=== PATIENT | male | born 1950 | race Caucasian/White ===

== ENCOUNTER 2018-05-25 07:17 | Day surgery (SDC) | payer OTHER, SELFPAY ==
[2018-05-25] VITALS (10 sets, daily range): BP systolic 106–116; BP diastolic 49–79; PULSE 54–67; RESP 16–18; TEMP 35.7–36.5; O2SAT 93–96; BMI 28.4
--- NOTE | 2018-05-25 | IMM_PTH ---
PATIENT: MARYA GANDHI LOC: [facility] U#:[id number] AGE/SX: 68/M ROOM: RE05/25/[address]: Dr. Severiano Zamudio MD : 1950 BED: DIS: 05/25/2018 SPEC #: [id number] RECD: 05/26/18 11:07 STATUS: GORDO SULTANA #: [id number] SURY: 05/25/18 00:[address]: Severiano Zamudio DEPT: IMMUNOHISTOCHEMISTRY RECD BY: Darell Meehan ENTERED: 05/26/18 11:08 SP TYPE: IMMUNO OTHR DR: Dr. Dhruv Deleon MD Tissues: A - Gastric mucous membrane B - Stomach, NOS Procedures: H Pylori (initial) PHYSICIAN & INSTITUTION [place] [id number] SPECIMEN INFORMATION: Tissue Source: A. Antrum biopsy, B. Body of stomach biopsy Clinical Info: Epigastric abdominal pain Specimen Number: [id number] A, B CPT code: 64405a9 METHODOLOGY: Deparaffinized sections of prefer/formalin-fixed tissue or PAP/DQ stained slides are incubated with monoclonal/polyclonal antibodies/oligonucleotide probes. Localization is made via biotin free immunoperoxidase method. Appropriate controls are performed and reacted as expected. Results on target cell population are indicated in the following table: RESULTS: ANTIBODY / CLONE RESULT Block A H Pylori (polyclonal) negative Block B H Pylori (polyclonal) positive These tests were developed and their performance characteristics determined by [facility]. They may not have been cleared or approved by the U.S. Food and Drug Administration. The FDA has determined that such clearance or approval is not necessary. INTERPRETATION: A. Antrum biopsy: Negative for Helicobacter pylori organisms. B. Body of stomach biopsy: Positive for a few Helicobacter pylori organisms. SJ:maite 05/26/18
--- NOTE | 2018-05-25 | EGD_PTH ---
PATIENT: MARYA GANDHI LOC: [facility] U#:[id number] AGE/SX: 68/M ROOM: RE05/25/[address]: Dr. Severiano Zamudio MD : 1950 BED: DIS: 05/25/2018 SPEC #: [id number] RECD: 05/25/18 09:36 STATUS: GORDO SULTANA #: [id number] SURY: 05/25/18 00:[address]: Severiano Zamudio DEPT: SURGICAL PATHOLOGY RECD BY: Ruperto Bae ENTERED: 05/25/18 11:05 SP TYPE: EGD BIOPSY OT DR: Dr. Dhruv Deleon MD Tissues: A - Gastric mucous membrane B - Stomach, NOS C - Esophageal mucous membrane D - Esophageal mucous membrane Procedures: Surgery Specimen Level IV HEADER OPERATION: EGD with biopsies PRE-OP DIAGNOSIS: Epigastric abdominal pain TISSUE SUBMITTED: A. Antrum biopsy for H. Pylori, B. Body of stomach biopsy, C. Distal esophagus biopsy, D. Mid esophagus biopsy MICROSCOPIC DIAGNOSIS A. Antral biopsy: Lhux-rm-jodokfpy gastritis. B. Body of stomach, biopsy: Moderate chronic active gastritis. C. Distal esophagus, biopsy: Fragmental gastroesophageal mucosa with chronic inflammation. Intestinal metaplasia (goblet cell metaplasia) not identified. See comment. D. Mid esophagus, biopsy: Fragmental squamous epithelium with mild chronic inflammation. SJ:carlos 05/26/18 COMMENT A & B. The results of immunohistochemistry for Helicobacter pylori will be reported separately ([id number]). C. Specimen predominantly consists of squamous epithelium. Alcian blue/PAS stain with matched control is used in the evaluation of the specimen. MICROSCOPIC DESCRIPTION Slides are reviewed. A. The specimen shows fragments of gastric mucosa with chronic inflammatory cell infiltrates in the lamina propria consisting of lymphocytes and plasma cells, consistent with cmqw-fa-lmtsqnwt chronic gastritis. GROSS DESCRIPTION A. Received in fixative is one container labeled with the patient's name and designated antrum biopsy for H. pylori. The specimen consists of one fragment of tissue measuring 0.6 x 0.3 x 0.2. The specimen is totally submitted in one cassette. B. Received in fixative is one container labeled with the patient's name and designated body of stomach biopsy. The specimen consists of one fragment of tissue measuring 0.4 x 0.3 x 0.2. The specimen is totally submitted in one cassette. C. Received in fixative is one container labeled with the patient's name and designated distal esophagus biopsy. The specimen consists of multiple fragments of tissue measuring in aggregate 1.5 x 0.6 x 0.2. The specimen is totally submitted in one cassette. D. Received in fixative is one container labeled with the patient's name and designated mid esophagus biopsy. The specimen consists of one fragment of tissue measuring 0.5 x 0.4 x 0.2. The specimen is totally submitted in one cassette. RY:carlos 05/24/18 TC: 2 CPT: 18304 x4, 05822
--- NOTE | 2018-05-25 09:17 | PCM.OPRPT ---
Problem List (1) Epigastric abdominal pain Status: Acute Report of Operation Date of Procedure: 05/25/18 Pre-Operative Diagnosis: Epigastric abdominal pain Post-Operative Diagnosis: Small hiatal hernia, mild antral gastritis Surgery/Procedure Performed:: Esophagogastroduodenoscopy with cold forcep biopsies Description of Surgical Findings:: Timeout and informed consent was obtained. 68-year-old gentleman was taken to the endoscopy suite. His oropharynx anesthetized with Topex. He was placed in a left lateral decubitus position. Throughout the procedure he received a total of 100 mg Demerol and 4.5 mg of Versed is intravenous sedation. Videogastroscope was inserted in the esophageal inlet. The proximal mid distal esophagus did not appear to be grossly remarkable. The EG junction was at 40 cm. Small hiatal hernia noted. There is evidence of very mild reflux. No erosions no acute inflammation. The scope was advanced into the stomach where a very minimal amount of antral erythema was identified. The scope was advanced through the pylorus. The first and second portions of the duodenum were inspected. This was not remarkable. The scope was withdrawn back in the stomach retroflexed the EG junction cardia inspected a hiatal hernia noted. The cardia was otherwise unremarkable. The scope was placed back in in antegrade viewing position and the main body of the stomach on the greater curvature stride at just a mild amount of erythema to it. Biopsy was obtained of the antrum and of the mid body of the stomach. Excess fluid and air was aspirated free. The scope was withdrawn to the distal esophagus. Distal esophageal biopsy was obtained at the e.g. junction. And then an additional mid esophageal biopsy was obtained. He tolerated all of that well. Blood loss was minimal. The scope procedure was withdrawn and completed. Impression Small hiatal hernia with findings suggested some mild reflux esophagitis. Mild antral and body of the stomach erythema. Patient is already on omeprazole 20 mg daily. I will increase that to 20 mg twice daily while awaiting pathology results. The current findings do not correlate well with the patient's complaints of burning epigastric pain. I will asked him to continue to follow up with his primary care physician regarding that evaluation. Medications were given at 0906. Procedure started 0907. Procedure was completed at 0918. Severiano Zamudio M.D., F.A.C.S. Type of Anesthesia:: IV Sedation
== END 2018-05-25 10:50 | disposition home or self-care (01) ==
LOC: EN 07:18 → AC 07:20
PROVIDERS: Family Provider Family Medicine; PCP Family Medicine; Visit Provider Surgery
PROC: (CPT 43239; principal; 2018-05-25 08:40)
DX: K21.0 Gastro-esophageal reflux disease with esophagitis (principal); K44.9 Diaphragmatic hernia without obstruction or gangrene; K29.50 Unspecified chronic gastritis without bleeding; I10 Essential (primary) hypertension; E78.00 Pure hypercholesterolemia, unspecified; I25.2 Old myocardial infarction; Z79.82 Long term (current) use of aspirin; Z79.899 Other long term (current) drug therapy; Z87.891 Personal history of nicotine dependence
CPT/HCPCS: 43239; 88305; 88342; 99152; J7120

== ENCOUNTER → 2018-08-31 12:02 | Outpatient (CLI) | payer OTHER, SELFPAY ==
[2018-08-31 12:34] LABS: Erythrocyte Sedimentation Rate 21 mm/hr (0-20)
[2018-08-31 13:14] LABS: Amylase 82 U/L (25-115); Thyroid Stim Hormone (TSH) 2.51 uIU/mL (0.358-3.74)
[2018-09-03 03:07] LABS: Endomysial Antibody IgA Negative (Negative); Immunoglobulin A 177 mg/dL (61-437)
[2018-09-03 08:50] LABS: H. PYLORI STOOL AG Negative (Negative); t-Transglutaminase IgA <2 U/mL (0-3)
== END ==
PROVIDERS: Family Provider Family Medicine; PCP Family Medicine
DX: B96.81 Helicobacter pylori [H. pylori] as the cause of diseases classified elsewhere (principal); R10.84 Generalized abdominal pain
CPT/HCPCS: 82150; 82784; 83516; 84443; 85652; 86255

== ENCOUNTER → 2020-06-12 | Outpatient (CLI) | payer OTHER, SELFPAY ==
[2020-06-12 12:28] VITALS: BMI 28.5
--- NOTE | 2020-06-12 12:59 | CT_ITS ---
STUDY: LOW DOSE CT LUNG CANCER SCREENING REASON FOR EXAM: Male, 70 years old. LUNG CANCER SCREENING. 35 PACK YEAR SMOKING HISTORY RADIATION DOSAGE (If Supplied By Facility): CTDIvol = ( 3.02 ) mGy, DLP = ( 103.82 ) mGycm TECHNIQUE: No contrast was administered. Low dose technique was utilized (average mAS-38 and kVp 120). 1.25 mm axial source images with a slice interval of 1.25-mm were reconstructed in lung windows. 2.5 mm axial source images with a slice interval of 2.5-mm were reconstructed in lung windows. 5.0 mm axial source images with a slice interval of 5.0-mm were reconstructed in soft tissue windows. Nodule measured using lung windows on PACS and/or independent workstation with automated measurement of minimum and maximum diameter. Nodule measurement reported as average diameter rounded to the nearest whole number. Growth is defined as an increase ins size of greater than 1.5 mm. COMPARISON: None. NODULES: No suspicious nodules are seen. Emphysema: There is evidence of a interstitial scarring at the lung bases with areas of bronchiectasis and subpleural blebs. Findings in keeping with scarring at the lung apices as well. Aorta: Calcification of the aortic arch. Coronary arteries: Coronary artery calcification. Mediastinal nodes: Calcified nodes in the aortopulmonary window. Other chest and abdominal findings: Degenerative changes of the thoracic spine. CT/Low Dose CT Lung Screening IMPRESSION: Lung-RADS category 2 - Continue annual screening with LDCT in 12 months. IMPORTANT NOTES FOR USE: ACR Lung-RADS Version 1.0 Assessment Categories Release Date: March 27, 2014 Category: Coded 0-4 bases on nodule(s) with highest degree of suspicion. Negative screen is defined as categories 1 and 2; a positive screen is defined as categories 3 and 4. Category 3 and 4A nodules that are unchanged on interval CT should be coded as category 2, and individuals returned to screening in 12 months. Category 4X: Category 3 or 4 nodules with additional imaging findings that increase the suspicion of lung cancer, such as spiculation, GGN that doubles in size in 1 year, enlarged lymph notes, etc. Category Modifiers: S (significant finding unrelated to lung cancer) and C (prior history of treated lung cancer) may be added to the 0-4 Lung-RADS Electronically Signed: Arnaldo Polanco, at 13:30 EDT , Service support ,
== END | disposition home or self-care (01) ==
LOC: CT 12:59
PROVIDERS: PCP Family Medicine; Referring Provider Nurse Practitioner Family; Visit Provider Nurse Practitioner Family
DX: Z87.891 Personal history of nicotine dependence (principal); Z12.2 Encounter for screening for malignant neoplasm of respiratory organs
CPT/HCPCS: G0297

== ENCOUNTER → 2020-07-13 | Outpatient (CLI) | payer OTHER, SELFPAY ==
[2020-06-20 06:22] VITALS: BMI 28.8
--- NOTE | 2020-07-13 13:56 | PFT ---
INTRODUCTION: The patient is a 70-year-old male that presents for pulmonary function studies secondary to a diagnosis of shortness of breath. Respiratory therapy reports good patient effort. Bronchodilators were used during testing. INTERPRETATION: Forced expiration spirometry demonstrates no evidence of a large airways obstructive ventilatory defect. There was no significant response to aerosolized bronchodilators. Spirograms are of good quality and plateau gradually indicating slow emptying of the lungs. Body plethysmography was performed and reveals a decreased TLC to 4.37 L, 72% of predicted, indicative of a mild restrictive ventilatory impairment. The remainder of the lung volumes are symmetrically reduced. Diffusing capacity by single breath CO is mildly reduced at 71% of predicted. IMPRESSION: Mild restrictive ventilatory impairment with symmetric reduction in diffusing capacity.
== END | disposition home or self-care (01) ==
PROVIDERS: PCP Family Medicine; Referring Provider Internal Medicine Critical Care Medicine; Visit Provider Internal Medicine Critical Care Medicine
DX: R06.02 Shortness of breath (principal)
CPT/HCPCS: 94060; 94726; 94729

== ENCOUNTER → 2020-07-17 | Outpatient (CLI) | payer OTHER, SELFPAY ==
[2020-06-20 06:22] VITALS: BMI 28.8
[2020-07-17 13:08] VITALS: PULSE 76; PULSE 79; PULSE 93; PULSE 94; PULSE 95; PULSE 96; PULSE 97; O2SAT 91; O2SAT 92; O2SAT 94; O2SAT 95
--- NOTE | 2020-07-18 06:38 | PCM.PSN.6M ---
PSN 6 Minute Walk Test - 6 Minute Walk Test 6 Minute Walk Test: 6 Minute Walk Test PSN:6-Minute Walk Test Start: 07/17/20 13:07 Freq: Status: Active Protocol: RESP.6MINW Document 07/17/20 13:08 ZEB (Rec: 07/17/20 13:14 ZEB [id number]) 6 Minute Walk Test Date Performed 07/17/20 Time Performed 13:00 Height 5 ft 8 in Weight: 86.183 kg Weight in Pounds 190.[address]: Young Lassiter Assistive device used: None Pre-test Oxygen Delivery Method Room Air Pulse Ox (%) 94 Pulse Rate (60-100 beats/min) 76 Dyspnea Saud Scale (0-10) 0.5 Exertion Saud Scale (6-20) 6 1st minute Oxygen Delivery Method Room Air Pulse Ox (%) 92 Pulse Rate (60-100 beats/min) 93 2nd minute Oxygen Delivery Method Room Air Pulse Ox (%) 91 Pulse Rate (60-100 beats/min) 94 3rd minute Oxygen Delivery Method Room Air Pulse Ox (%) 91 Pulse Rate (60-100 beats/min) 94 4th minute Oxygen Delivery Method Room Air Pulse Ox (%) 91 Pulse Rate (60-100 beats/min) 95 5th minute Oxygen Delivery Method Room Air Pulse Ox (%) 91 Pulse Rate (60-100 beats/min) 96 6th minute Oxygen Delivery Method Room Air Pulse Ox (%) 91 Pulse Rate (60-100 beats/min) 97 Dyspnea Saud Scale (0-10) 2 Exertion Saud Scale (6-20) 12 Post-test Oxygen Delivery Method Room Air Pulse Ox (%) 95 Pulse Rate (60-100 beats/min) 79 Full Laps Walked 20 Partial Lap, Number of Tiles Walked 18 Total Distance Walked (ft) 1198 - Interpretation Interpretation: Patient was able to ambulate 1198 feet over the course of 6 minutes on room air with no assistive devices or breaks. The patient did have significant desaturation from baseline of 94% to as low as 91%. No significant tachycardia was noted. These findings are consistent with a respiratory limitation exercise tolerance. - Recommendations Recommendations: No supplemental oxygen is indicated at this time, but patient will need to be followed closely given level of desaturation.
== END | disposition home or self-care (01) ==
LOC: PSN 12:43
PROVIDERS: PCP Family Medicine; Referring Provider Internal Medicine Critical Care Medicine; Visit Provider Internal Medicine Critical Care Medicine
DX: R06.02 Shortness of breath (principal)
CPT/HCPCS: 94618

== ENCOUNTER → 2021-03-12 08:07 | Outpatient (CLI) | payer OTHER, SELFPAY ==
[2020-08-01 06:31] VITALS: BMI 29.3
--- NOTE | 2021-03-12 14:09 | PFTCOMP_ITS ---
COMPLETE PULMONARY FUNCTION TEST INTERPRETATION Brief HPI: Patient is a 70 year old male, currently under the care of Dr. Lassiter, who presents to [facility] for complete pulmonary function tests secondary to diagnosis of dyspnea. Respiratory therapist reports good effort and reproducible results. Interpretation: Forced expiration spirometry shows no large airways obstructive ventilatory defect with an FEV1 of 86% predicted. There is no significant bronchodilator response by strict ATS criteria. Spirograms are of good quality and plateau normally. The respiratory flow volume loop shows a normal pattern. Lung volumes by body plethysmography show a slightly reduced total lung capacity at 4.95 L, 82% predicted. All other lung volumes are within normal limits. Diffusion capacity by carbon monoxide is normal at 75% predicted. The airway resistance is normal. Compared to previous pulmonary function tests from 07/13/2020, there has been a slight improvement in total lung capacity by 13%. Impression: Mild restrictive ventilatory defect with relatively preserved diffusion capacity and some improvement compared to previous.
== END ==
PROVIDERS: PCP Family Medicine; Referring Provider Internal Medicine Critical Care Medicine; Visit Provider Internal Medicine Critical Care Medicine
DX: J98.4 Other disorders of lung (principal)
CPT/HCPCS: 94060; 94726; 94729

== ENCOUNTER → 2021-03-15 10:19 | Outpatient (CLI) | payer OTHER, SELFPAY ==
[2021-03-15 09:31] VITALS: BMI 29.7
[2021-03-15 11:03] LABS: Rheumatoid Factor < 10.0 IU/mL (<15)
[2021-03-18 20:07] LABS: ANTINUCLEAR ANTIBODIES DIRECT Positive (Negative); Anti-Centromere B Ab <0.2 AI (0.0-0.9); Anti-Chromatin 0.2 AI (0.0-0.9); Anti-Jo <0.2 AI (0.0-0.9); Anti-Scleroderma-70 AB <0.2 AI (0.0-0.9); Cytoplasmic Ab (C-ANCA) <1:20 titer (Neg:<1:20); RNP Ab 0.5 AI (0.0-0.9); SJOGREN'S Anti-SS-A test < 0.2 AI (0.0-0.9); SJOGREN'S Anti-SS-B test < 0.2 AI (0.0-0.9); Smith Ab <0.2 AI (0.0-0.9)
[2021-03-18 21:53] LABS: Anti-dsDNA Ab 195 IU/mL (0-9); CCP IgG Antibodies 5 units (0-19); Perinuclear Ab (P-ANCA) <1:20 titer (Neg:<1:20)
== END ==
PROVIDERS: PCP Family Medicine; Referring Provider Internal Medicine Critical Care Medicine; Visit Provider Internal Medicine Critical Care Medicine
DX: J98.4 Other disorders of lung (principal)
CPT/HCPCS: 36415; 86038; 86200; 86225; 86235; 86256; 86431

== ENCOUNTER → 2021-03-19 11:09 | Outpatient (CLI) | payer OTHER, SELFPAY ==
[2021-03-15 09:31] VITALS: BMI 29.7
[2021-03-19 11:40] VITALS: PULSE 80; PULSE 81; PULSE 85; PULSE 87; PULSE 90; PULSE 91; PULSE 92; O2SAT 89; O2SAT 90; O2SAT 91; O2SAT 92; O2SAT 94; O2SAT 95
--- NOTE | 2021-03-20 13:39 | PCM.PSN.6M ---
PSN 6 Minute Walk Test - 6 Minute Walk Test 6 Minute Walk Test: 6 Minute Walk Test PSN:6-Minute Walk Test Start: 03/19/21 11:40 Freq: Status: Active Protocol: RESP.6MINW Document 03/19/21 11:40 [facility] (Rec: 03/19/21 11:52 [facility] [id number]) 6 Minute Walk Test Date Performed 03/19/21 Time Performed 11:15 Height 5 ft 8 in Weight: 190 lb Weight in Pounds 190.[address]: Young Lassiter Assistive device used: None Pre-test Oxygen Delivery Method Room Air Pulse Ox (%) 95 Pulse Rate (60-100 beats/min) 81 Dyspnea Saud Scale (0-10) 0 1st minute Oxygen Delivery Method Room Air Pulse Ox (%) 92 Pulse Rate (60-100 beats/min) 85 Dyspnea Saud Scale (0-10) 0 Number of Rests Taken 0 2nd minute Oxygen Delivery Method Room Air Pulse Ox (%) 90 Pulse Rate (60-100 beats/min) 87 Dyspnea Saud Scale (0-10) 0 Number of Rests Taken 0 3rd minute Oxygen Delivery Method Room Air Pulse Ox (%) 91 Pulse Rate (60-100 beats/min) 90 Dyspnea Saud Scale (0-10) 1 Number of Rests Taken 0 4th minute Oxygen Delivery Method Room Air Pulse Ox (%) 90 Pulse Rate (60-100 beats/min) 91 Dyspnea Asud Scale (0-10) 1 Number of Rests Taken 0 5th minute Oxygen Delivery Method Room Air Pulse Ox (%) 90 Pulse Rate (60-100 beats/min) 91 Dyspnea Saud Scale (0-10) 1 Number of Rests Taken 0 6th minute Oxygen Delivery Method Room Air Pulse Ox (%) 89 Pulse Rate (60-100 beats/min) 92 Dyspnea Saud Scale (0-10) 1 Number of Rests Taken 0 Post-test Oxygen Delivery Method Room Air Pulse Ox (%) 94 Pulse Rate (60-100 beats/min) 80 Dyspnea Saud Scale (0-10) 0 Full Laps Walked 21 Partial Lap, Number of Tiles Walked 47 Total Distance Walked (ft) 1286 - Interpretation Interpretation: The patient ambulated 1286 feet over the course of 6 minutes beginning on room air without assistive devices or breaks. Pretesting oxygen saturation was noted to be 95% on room air. With ambulation, the guerrero oxygen saturation was 89% at minute 6 of testing. This represents a significant exertional oxygen desaturation. - Recommendations Recommendations: There is no indication for the use of supplemental oxygen at this time. However, close interval follow-up is recommended, given the degree of oxygen desaturation noted during the study.
== END ==
PROVIDERS: PCP Family Medicine; Referring Provider Internal Medicine Critical Care Medicine; Visit Provider Internal Medicine Critical Care Medicine
DX: J98.4 Other disorders of lung (principal); R06.02 Shortness of breath
CPT/HCPCS: 94618

== ENCOUNTER → 2021-08-26 08:47 | Outpatient (CLI) | payer OTHER, SELFPAY ==
[2021-08-26 09:59] LABS: EXAGEN MAILED SPECIMEN
== END ==
PROVIDERS: PCP Family Medicine; Referring Provider Internal Medicine Rheumatology; Visit Provider Internal Medicine Rheumatology
DX: R76.8 Other specified abnormal immunological findings in serum (principal)

== ENCOUNTER → 2021-09-06 11:01 | Outpatient (CLI) | payer OTHER, SELFPAY ==
[2021-09-06 13:11] LABS: Absolute Lymphocyte Count 1.93 X10^3/uL (0.83-4.51); Absolute Neutrophil Count 4.2 X10^3/uL (2.0-7.7); Basophil# 0.04 X10^3/uL; Basophil% 0.6 % (0-1); Eosinophil# 0.28 X10^3/uL; Eosinophils% 3.9 % (0-5); Erythrocyte Sedimentation Rate 13 mm/hr (0-20); Hematocrit 46.3 % (40-54); Hemoglobin 15.2 g/dL (13.0-16.5); Lymphocyte # 1.93 X10^3/ul (0.83-4.51); Mean Corp Hgb Conc 32.8 g/dL (32-36); Mean Corpuscular Hgb 29.8 pg (27.0-32.0); Mean Corpuscular Volume 90.8 fL (80-94); Mean Platelet Vol. 11.5 fl (6.2-12.0); Monocyte# 0.64 X10^3/uL; Monocyte% 8.9 % (0-10); NRBC Flagged by Analyzer 0 % (0-5); Neutrophil # 4.23 X10^3/uL (2.7-7.7); Platelet Count 179 K/mm3 (150-450); RBC Distribution Width SD 43.3 fl (35.1-43.9); White Blood Count 7.2 K/mm3 (4.4-11.0)
[2021-09-06 13:30] LABS: Color, Urine Yellow (Yellow); Glucose, Dipstick Normal (Normal); Ketone-Dipstick Negative (Negative); Leukocyte Esterase-Dipstick Negative /ul (Negative); Nitrite-Dipstick Negative (Negative); Occult Blood-Urine Negative /ul (Negative); Protein-Dipstick Negative (Negative); Urine Bilirubin Dipstick Negative (Negative); Urine Clarity Clear (Clear); Urine Urobilinogen Normal (Normal)
[2021-09-06 13:45] LABS: Protein, Urine (Random) 21.1 mg/dL (<11.9); Protein:Creat Ratio 161 mg/g CRE (0-200)
[2021-09-06 13:59] LABS: Albumin, Serum 3.4 g/dL (3.2-5.0); BUN 14 mg/dL (7-18); BUN/Creat Ratio 11.4 RATIO (10-20); Creatinine, Serum 1.23 mg/dL (0.70-1.30); EST Glomerular Filtration Rate 62 mL/min (>60); Est Glom Filt Rate - Afr Amer 75 mL/min (>60); Glucose 96 mg/dL (74-106); Protein, Total 7.5 g/dL (6.4-8.2)
[2021-09-06 14:00] LABS: ALB/GLOB Ratio 0.8 RATIO (0.9-2.4); AST(SGOT) 23 U/L (15-37); Alanine Aminotransfer ALT/SGPT 27 U/L (16-61); Alkaline Phosphatase 69 U/L (45-117); Anion Gap 6 (5-15); CRP < 2.90 mg/L (0.0-3.0); Calcium,Total 8.7 mg/dL (8.5-10.1); Chloride 105 mmol/L (98-107); Globulin 4.1 g/dL (2.2-4.2); Hepatitis B Surface Antibody Reactive; Hepatitis B Surface Antigen Non-Reactive (Nonreactive); Potassium 4.3 mmol/L (3.5-5.1); Sodium Level 138 mmol/L (136-145)
[2021-09-09 09:15] LABS: Hepatitis C Antibody REACTIVE (Nonreactive)
== END ==
PROVIDERS: PCP Family Medicine; Referring Provider Internal Medicine Rheumatology; Visit Provider Internal Medicine Rheumatology
DX: M06.4 Inflammatory polyarthropathy (principal); R76.8 Other specified abnormal immunological findings in serum; M47.897 Other spondylosis, lumbosacral region; Q66.70 Congenital pes cavus, unspecified foot; R06.00 Dyspnea, unspecified; I25.10 Atherosclerotic heart disease of native coronary artery without angina pectoris; K21.9 Gastro-esophageal reflux disease without esophagitis; J30.9 Allergic rhinitis, unspecified; E78.5 Hyperlipidemia, unspecified; N40.0 Benign prostatic hyperplasia without lower urinary tract symptoms
CPT/HCPCS: 36415; 80053; 81002; 82570; 84156; 85025; 85652; 86140; 86706; 86803; 87340

== ENCOUNTER → 2021-09-12 10:13 | Outpatient (CLI) | payer OTHER, SELFPAY ==
[2021-09-12 12:27] LABS: Absolute Lymphocyte Count 1.83 X10^3/uL (0.83-4.51); Absolute Neutrophil Count 4.2 X10^3/uL (2.0-7.7); Basophil# 0.05 X10^3/uL; Basophil% 0.7 % (0-1); Eosinophil# 0.28 X10^3/uL; Eosinophils% 3.8 % (0-5); Hematocrit 45.3 % (40-54); Hemoglobin 15.2 g/dL (13.0-16.5); Lymphocyte # 1.83 X10^3/ul (0.83-4.51); Mean Corp Hgb Conc 33.6 g/dL (32-36); Mean Corpuscular Hgb 29.8 pg (27.0-32.0); Mean Corpuscular Volume 88.8 fL (80-94); Mean Platelet Vol. 11.4 fl (6.2-12.0); Monocyte# 0.87 X10^3/uL; Monocyte% 11.9 % (0-10); NRBC Flagged by Analyzer 0 % (0-5); Neutrophil # 4.16 X10^3/uL (2.7-7.7); Platelet Count 178 K/mm3 (150-450); RBC Distribution Width SD 42.5 fl (35.1-43.9); White Blood Count 7.3 K/mm3 (4.4-11.0)
[2021-09-12 12:45] LABS: ALB/GLOB Ratio 0.8 RATIO (0.9-2.4); AST(SGOT) 20 U/L (15-37); Alanine Aminotransfer ALT/SGPT 29 U/L (16-61); Albumin, Serum 3.5 g/dL (3.2-5.0); Alkaline Phosphatase 69 U/L (45-117); Anion Gap 5 (5-15); BUN 18 mg/dL (7-18); BUN/Creat Ratio 14.1 RATIO (10-20); Calcium,Total 8.9 mg/dL (8.5-10.1); Chloride 106 mmol/L (98-107); Creatinine, Serum 1.28 mg/dL (0.70-1.30); EST Glomerular Filtration Rate 59 mL/min (>60); Est Glom Filt Rate - Afr Amer 71 mL/min (>60); Globulin 4.2 g/dL (2.2-4.2); Glucose 91 mg/dL (74-106); Potassium 4.2 mmol/L (3.5-5.1); Protein, Total 7.7 g/dL (6.4-8.2); Sodium Level 139 mmol/L (136-145)
[2021-09-13 21:07] LABS: HCV Quant. RNA PCR HCV Not Detected IU/mL (.)
== END ==
PROVIDERS: PCP Family Medicine; Referring Provider Internal Medicine Rheumatology; Visit Provider Internal Medicine Rheumatology
DX: M06.4 Inflammatory polyarthropathy (principal); R76.8 Other specified abnormal immunological findings in serum; M47.897 Other spondylosis, lumbosacral region; Q66.70 Congenital pes cavus, unspecified foot; R06.00 Dyspnea, unspecified; I25.10 Atherosclerotic heart disease of native coronary artery without angina pectoris; Z79.899 Other long term (current) drug therapy
CPT/HCPCS: 36415; 80053; 85025; 87522

== ENCOUNTER 2021-12-02 13:28 | Outpatient (CLI) | payer OTHER, SELFPAY ==
[2021-12-02 14:13] LABS: Absolute Lymphocyte Count 1.71 X10^3/uL (0.83-4.51); Absolute Neutrophil Count 4.2 X10^3/uL (2.0-7.7); Basophil# 0.04 X10^3/uL; Basophil% 0.6 % (0-1); Eosinophil# 0.29 X10^3/uL; Eosinophils% 4.1 % (0-5); Hematocrit 44.4 % (40-54); Hemoglobin 14.7 g/dL (13.0-16.5); Lymphocyte # 1.71 X10^3/ul (0.83-4.51); Lymphocyte % 24.3 % (19-41); Mean Corp Hgb Conc 33.1 g/dL (32-36); Mean Corpuscular Hgb 29.8 pg (27.0-32.0); Mean Corpuscular Volume 90.1 fL (80-94); Monocyte# 0.78 X10^3/uL; Monocyte% 11.1 % (0-10); NRBC Flagged by Analyzer 0 % (0-5); Neutrophil % 59.5 % (47-70); Platelet Count 173 K/mm3 (150-450); RBC Distribution Width CV 12.9 % (11.6-14.6); Red Blood Count 4.93 M/mm3 (4.6-6.2); White Blood Count 7.1 K/mm3 (4.4-11.0)
[2021-12-02 14:39] LABS: BUN 18 mg/dL (7-18); Creatinine, Serum 1.38 mg/dL (0.70-1.30); EST Glomerular Filtration Rate 54 mL/min (>60); Glucose 99 mg/dL (74-106)
[2021-12-02 14:40] LABS: ALB/GLOB Ratio 0.9 RATIO (0.9-2.4); AST(SGOT) 25 U/L (15-37); Alanine Aminotransfer ALT/SGPT 31 U/L (16-61); Albumin, Serum 3.6 g/dL (3.2-5.0); Alkaline Phosphatase 67 U/L (45-117); Anion Gap 5 (5-15); Calcium,Total 8.6 mg/dL (8.5-10.1); Chloride 104 mmol/L (98-107); Est Glom Filt Rate - Afr Amer 65 mL/min (>60); Globulin 3.9 g/dL (2.2-4.2); Potassium 4.2 mmol/L (3.5-5.1); Protein, Total 7.5 g/dL (6.4-8.2); Sodium Level 138 mmol/L (136-145)
== END 2021-12-02 23:59 | disposition home or self-care (01) ==
LOC: LAB 13:29
PROVIDERS: PCP Family Medicine; Referring Provider Internal Medicine Rheumatology; Visit Provider Internal Medicine Rheumatology
DX: M06.4 Inflammatory polyarthropathy (principal); Z79.899 Other long term (current) drug therapy; R76.8 Other specified abnormal immunological findings in serum; M47.897 Other spondylosis, lumbosacral region; Q66.70 Congenital pes cavus, unspecified foot; R06.00 Dyspnea, unspecified; I25.10 Atherosclerotic heart disease of native coronary artery without angina pectoris
CPT/HCPCS: 36415; 80053; 85025

== ENCOUNTER 2022-02-06 08:43 | Outpatient (CLI) | payer OTHER, SELFPAY ==
--- NOTE | 2022-02-07 13:17 | PFT ---
INTRODUCTION: The patient is a 71-year-old male who presents for pulmonary function studies today secondary to a diagnosis of restrictive airway disease. Respiratory therapy reported good patient effort. Bronchodilators were used during testing. INTERPRETATION: Forced expiration spirometry demonstrates no evidence of a large airways obstructive ventilatory defect. There was no significant response to aerosolized bronchodilators. Spirograms are of good quality and plateau normally. Body plethysmography was performed and revealed an elevated TLC and RV. Diffusing capacity by single breath CO is reduced to 60% of predicted. IMPRESSION: Stigmata of small airways disease with associated hyperinflation and air trapping. Diffusing capacity is mildly reduced.
== END 2022-02-06 23:59 | disposition home or self-care (01) ==
LOC: PSN 08:45
PROVIDERS: PCP Family Medicine; Referring Provider Internal Medicine Critical Care Medicine; Visit Provider Internal Medicine Critical Care Medicine
DX: J98.4 Other disorders of lung (principal)
CPT/HCPCS: 94060; 94726; 94729

== ENCOUNTER 2022-02-07 12:13 | Outpatient (CLI) | payer OTHER, SELFPAY ==
[2022-02-07 12:30] VITALS: PULSE 101; PULSE 107; PULSE 79; PULSE 82; PULSE 84; PULSE 87; PULSE 96; PULSE 97; O2SAT 90; O2SAT 91; O2SAT 93; O2SAT 95
--- NOTE | 2022-02-08 07:24 | PCM.PSN.6M ---
PSN 6 Minute Walk Test 6 Minute Walk Test 6 Minute Walk Test: 6 Minute Walk Test PSN:6-Minute Walk Test Start: 02/07/22 12:39 Freq: Status: Active Protocol: RESP.6MINW Document 02/07/22 12:30 EW (Rec: 02/07/22 12:42 EW [id number]) 6 Minute Walk Test Date Performed 02/07/22 Time Performed 12:30 Height 5 ft 8 in Weight: 86.183 kg Weight in Pounds 190.[address]: Young Lassiter Assistive device used: None Pre-test Oxygen Delivery Method Room Air Pulse Ox (%) 95 Pulse Rate (60-100 beats/min) 79 Dyspnea Saud Scale (0-10) 0 Exertion Saud Scale (6-20) 6 1st minute Oxygen Delivery Method Room Air Pulse Ox (%) 93 Pulse Rate (60-100 beats/min) 84 2nd minute Oxygen Delivery Method Room Air Pulse Ox (%) 91 Pulse Rate (60-100 beats/min) 97 3rd minute Oxygen Delivery Method Room Air Pulse Ox (%) 90 Pulse Rate (60-100 beats/min) 87 4th minute Oxygen Delivery Method Room Air Pulse Ox (%) 91 Pulse Rate (60-100 beats/min) 107 H 5th minute Oxygen Delivery Method Room Air Pulse Ox (%) 91 Pulse Rate (60-100 beats/min) 96 6th minute Oxygen Delivery Method Room Air Pulse Ox (%) 91 Pulse Rate (60-100 beats/min) 101 H Post-test Oxygen Delivery Method Room Air Pulse Ox (%) 95 Pulse Rate (60-100 beats/min) 82 Dyspnea Saud Scale (0-10) 1 Exertion Saud Scale (6-20) 11 Full Laps Walked 22 Partial Lap, Number of Tiles Walked 26 Total Distance Walked (ft) 1324 Interpretation Interpretation: The patient ambulated 1324 feet over the course of 6 minutes beginning on room air without assistive devices. Pretesting oxygen saturation was noted to be 95% on room air. With ambulation, the guerrero oxygen saturation was 90%. This represents a significant exertional oxygen desaturation. Recommendations Recommendations: There is no indication for the use of supplemental oxygen at this time. However, close interval follow-up is recommended, given the degree of oxygen desaturation noted during this study.
== END 2022-02-07 23:59 | disposition home or self-care (01) ==
LOC: PSN 12:14
PROVIDERS: PCP Family Medicine; Visit Provider Internal Medicine Critical Care Medicine
DX: J98.4 Other disorders of lung (principal)
CPT/HCPCS: 94618

== ENCOUNTER → 2022-05-27 | Outpatient (CLI) | payer OTHER, SELFPAY ==
[2022-05-27 10:11] LABS: Absolute Lymphocyte Count 1.67 X10^3/uL (0.83-4.51); Absolute Neutrophil Count 3.5 X10^3/uL (2.0-7.7); Basophil# 0.04 X10^3/uL; Basophil% 0.7 % (0-1); Eosinophil# 0.27 X10^3/uL; Eosinophils% 4.5 % (0-5); Hematocrit 44.3 % (40-54); Hemoglobin 15.1 g/dL (13.0-16.5); Lymphocyte # 1.67 X10^3/ul (0.83-4.51); Lymphocyte % 27.6 % (19-41); Mean Corp Hgb Conc 34.1 g/dL (32-36); Mean Corpuscular Hgb 30.3 pg (27.0-32.0); Mean Platelet Vol. 11.4 fl (6.2-12.0); Monocyte# 0.52 X10^3/uL; Monocyte% 8.6 % (0-10); NRBC Flagged by Analyzer 0 % (0-5); Neutrophil # 3.53 X10^3/uL (2.7-7.7); Neutrophil % 58.3 % (47-70); Platelet Count 168 K/mm3 (150-450); RBC Distribution Width CV 12.9 % (11.6-14.6); RBC Distribution Width SD 41.8 fl (35.1-43.9); Red Blood Count 4.98 M/mm3 (4.6-6.2); White Blood Count 6.1 K/mm3 (4.4-11.0)
[2022-05-27 10:40] LABS: AST(SGOT) 27 U/L (15-37); Alanine Aminotransfer ALT/SGPT 31 U/L (16-61); Albumin, Serum 3.5 g/dL (3.2-5.0); Alkaline Phosphatase 66 U/L (45-117); Anion Gap 6 (5-15); BUN 11 mg/dL (7-18); BUN/Creat Ratio 8.3 RATIO (10-20); Calcium,Total 8.7 mg/dL (8.5-10.1); Chloride 107 mmol/L (98-107); Creatinine, Serum 1.32 mg/dL (0.70-1.30); EST Glomerular Filtration Rate 57 mL/min (>60); Est Glom Filt Rate - Afr Amer 69 mL/min (>60); Globulin 3.5 g/dL (2.2-4.2); Glucose 123 mg/dL (74-106); Potassium 3.7 mmol/L (3.5-5.1); Sodium Level 139 mmol/L (136-145)
== END | disposition home or self-care (01) ==
LOC: MTLAB 08:52
PROVIDERS: PCP Family Medicine; Referring Provider Internal Medicine Rheumatology; Visit Provider Internal Medicine Rheumatology
DX: M06.4 Inflammatory polyarthropathy (principal); R76.8 Other specified abnormal immunological findings in serum; M47.897 Other spondylosis, lumbosacral region; Q66.70 Congenital pes cavus, unspecified foot; R06.00 Dyspnea, unspecified; I25.10 Atherosclerotic heart disease of native coronary artery without angina pectoris; K21.9 Gastro-esophageal reflux disease without esophagitis; J30.9 Allergic rhinitis, unspecified; E78.5 Hyperlipidemia, unspecified; N40.0 Benign prostatic hyperplasia without lower urinary tract symptoms; Z79.899 Other long term (current) drug therapy
CPT/HCPCS: 36415; 80053; 85025

== ENCOUNTER → 2022-08-26 | Outpatient (CLI) | payer OTHER, SELFPAY ==
[2022-08-26 14:55] LABS: Erythrocyte Sedimentation Rate 21 mm/hr (0-20)
[2022-08-26 14:57] LABS: Absolute Lymphocyte Count 1.51 X10^3/uL (0.83-4.51); Absolute Neutrophil Count 4.6 X10^3/uL (2.0-7.7); Basophil# 0.03 X10^3/uL; Basophil% 0.4 % (0-1); Eosinophil# 0.14 X10^3/uL; Hematocrit 45.3 % (40-54); Hemoglobin 15.2 g/dL (13.0-16.5); Lymphocyte # 1.51 X10^3/ul (0.83-4.51); Lymphocyte % 21.7 % (19-41); Mean Corp Hgb Conc 33.6 g/dL (32-36); Mean Corpuscular Hgb 30.2 pg (27.0-32.0); Mean Corpuscular Volume 89.9 fL (80-94); Mean Platelet Vol. 10.7 fl (6.2-12.0); Monocyte# 0.68 X10^3/uL; Monocyte% 9.8 % (0-10); NRBC Flagged by Analyzer 0 % (0-5); Neutrophil # 4.58 X10^3/uL (2.7-7.7); Neutrophil % 65.8 % (47-70); Platelet Count 170 K/mm3 (150-450); RBC Distribution Width CV 13.1 % (11.6-14.6); RBC Distribution Width SD 43.3 fl (35.1-43.9); Red Blood Count 5.04 M/mm3 (4.6-6.2)
--- NOTE | 2022-08-26 14:59 | CT_ITS ---
STUDY: CT ABDOMEN AND PELVIS WITH CONTRAST REASON FOR EXAM: Male, 72 years old. Small bowel obstruction RADIATION DOSAGE (If Supplied By Facility): CTDIvol = ( 17.06 ) mGy, DLP = ( 1205.83 ) mGycm TECHNIQUE: Transaxial images were obtained from the dome of the diaphragm to the symphysis pubis with oral contrast. Oral and amp; IV Gastrografin and amp; 100mL Isovue-370 was administered. Sagittal and coronal images were reconstructed. Individualized dose optimization techniques were used for this CT. COMPARISON: None. FINDINGS: The visualized lung bases are unremarkable. The visualized portions of the heart are within normal limits. Normal liver. Normal gallbladder and extrahepatic biliary system. Normal spleen. Normal pancreas. Normal bilateral adrenal glands. Normal right kidney. Normal left kidney. Normal visualized stomach. Normal small intestine. Normal colon. There is non-visualization of the appendix. Normal abdominal aorta. Normal inferior vena cava. Normal retroperitoneum. Normal urinary bladder. There are prostatic calcifications. Normal abdominal wall. Status post transpedicular fixation throughout the lower lumbar spine. CT/Abdomen/Pelvis WITH Contrast IMPRESSION: No acute abnormality. Electronically Signed: Stephen Dubon MD at 18:00 EDT ,
[2022-08-26 15:03] LABS: Anion Gap 7 (5-15); BUN 12 mg/dL (7-18); BUN/Creat Ratio 8.2 RATIO (10-20); Chloride 106 mmol/L (98-107); Creatinine, Serum 1.47 mg/dL (0.70-1.30); EST Glomerular Filtration Rate 50 mL/min (>60); Est Glom Filt Rate - Afr Amer 61 mL/min (>60); Glucose 112 mg/dL (74-106); Potassium 3.8 mmol/L (3.5-5.1); Sodium Level 139 mmol/L (136-145)
== END | disposition home or self-care (01) ==
LOC: CT 14:41
PROVIDERS: PCP Family Medicine; Referring Provider Physician Assistant; Visit Provider Physician Assistant
DX: R10.9 Unspecified abdominal pain (principal); K56.609 Unspecified intestinal obstruction, unspecified as to partial versus complete obstruction
CPT/HCPCS: 36415; 74177; 80048; 85025; 85652; Q9967

== ENCOUNTER 2022-09-02 07:20 | Day surgery (SDC) | payer OTHER, MEDICARE, SELFPAY ==
[2022-09-02] VITALS (7 sets, daily range): BP systolic 86–123; BP diastolic 59–78; PULSE 75–88; RESP 16–18; TEMP 36.1–36.4; O2SAT 94–96; BMI 26.4
--- NOTE | 2022-09-02 | GASB_PTH ---
PATIENT: MARYA GANDHI LOC: [facility] U#:[id number] AGE/SX: 72/M ROOM: RE09/02/[address]: Dr. Severiano Zamudio MD : 1950 BED: DIS: 09/02/2022 SPEC #: [id number] RECD: 09/02/22 11:19 STATUS: GORDO SULTANA #: [id number] SURY: 09/02/22 00:[address]: Severiano Zamudio DEPT: SURGICAL PATHOLOGY RECD BY: Yuri Ramos ENTERED: 09/02/22 11:20 SP TYPE: Gastric Bx OTHR DR: Dr. Dhruv Deleon MD Tissues: A - Gastric mucous membrane B - Esophageal mucous membrane Procedures: Special Stain Group II Surgery Specimen Level IV Alcian Blue/PAS (control) HEADER OPERATION: Colonoscopy, EGD ([facility]), biopsy PRE-OP DIAGNOSIS: Abdominal pain TISSUE SUBMITTED: A ? Antrum biopsy for histo and H. pylori, B ? Distal esophagus biopsy MICROSCOPIC DIAGNOSIS A. Gastric antrum, biopsy: Mild chronic gastritis. See comment. B. Distal esophagus, biopsy: Gastroesophageal junctional mucosa with chronic inflammation. No evidence of goblet cell metaplasia. See comment. AM:camron 09/03/2022 COMMENT A. The results of immunohistochemistry for Helicobacter pylori will be reported separately ([id number]). B. Alcian blue/PAS stain with matched control supports the above diagnosis. MICROSCOPIC DESCRIPTION Slides are reviewed. GROSS DESCRIPTION A - Received in fixative is one container labeled with the patient's name and designated antrum biopsy. The specimen consists of one irregular fragment of light alonzo soft tissue that measures 0.4 x 0.3 x 0.1 cm. The specimen is totally submitted in one cassette. B - Received in fixative is one container labeled with the patient's name and designated distal esophagus biopsy. The specimen consists of multiple irregular fragments of light alonzo soft tissue that in aggregate measure 1 x 0.3 x 0.1 cm. The specimen is totally submitted in one cassette. / SJ:camron 09/02/2022 TC:3 CPT: 24575 x2, 19228
[2022-09-02] MEDS: Lactated Ringers 1,000 ML 15 ML IV (07:30)
--- NOTE | 2022-09-02 08:11 | HP.PCM_ITS ---
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: No Is patient in pain?: No Allergies CHOLESTEROL MEDICATION- Allergy (Uncoded 08/26/22 13:59) Rash Medications aspirin 81 mg chewable tablet 81 mg PO QDAY 05/24/18 [History Confirmed 08/26/22] atorvastatin 10 mg tablet 10 mg PO QDAY 05/24/18 [History Confirmed 08/26/22] lansoprazole 30 mg delayed release,disintegrating tablet 30 mg PO DAILY #30 tabs 06/20/20 [Rx Confirmed 08/26/22] tamsulosin 0.4 mg capsule (Flomax) 0.4 mg PO QHS 06/20/20 [History Confirmed 08/26/22] esomeprazole magnesium 40 mg capsule,delayed release 40 mg PO DAILY #30 caps 08/02/20 [Rx Confirmed 08/26/22] azelastine 137 mcg (0.1 %) nasal spray aerosol 1 spray intranasal BID #30 mL 03/15/21 [Rx Confirmed 08/26/22] fluticasone propionate 50 mcg/actuation nasal spray,suspension (Flonase Allergy Relief) 2 spray intranasal QDAY #15.8 mL 03/15/21 [Rx Confirmed 08/26/22] albuterol sulfate 90 mcg/actuation aerosol inhaler 2 puff inhalation Q4H PRN shortness of breath or wheezing #1 device 10/02/21 [Rx Confirmed 08/26/22] PFSH Medical History? Epigastric abdominal pain GERD (gastroesophageal reflux disease) HTN (hypertension) hypercholesterolemia Sebaceous cyst Skin lesion Surgical History? h/o back surgery H/O hand surgery H/O heart surgery H/O knee surgery H/O shoulder surgery Family History? Mother Arthritis Social History? Smoking Status:? Former smoker quit date: 11/30/05 Tobacco: How many years used:? 38 Smokeless tobacco user:? snuff Electronic Cigarette Use:? not used how long ago did patient quit smoking:? 14 second hand exposure:? No alcohol intake:? never substance use type:? does not use HPI HPI HPI: Patient is a 72 y/o M I am following for recent hospitalization for abdominal pain, small bowel obstruction versus ileus. Patient stated he traveled to [place] via RV to the [employer] show. Patient states his and him arrived the day before the show last week. He noted the show was at 11:00 AM and ended at 3:00 pm. Patient noted he had some nuts throughout the show. He notes he did not eat breakfast that morning. Patient noted his and friends went out to eat following the show and he noted at the restaurant, he had developed abdominal pain. Patient stated he ate chicken, beef, and salad. It was a buffet style meal. He noted going back to the [facility] with generalized abdominal pain, nausea and vomiting started. Patient continued to vomit undigested food multiple times and an increase with severe amount of abdominal pain. Patient presented to the ED in [place]. A CT scan was completed which showed small bowel obstruction versus ileus. Patient was given a laxative within the hospital to assist with bowel movements. Patient states he was in the hospital for 3 days. He states a colonoscopy and upper scope was recommended, however the patient pre ferred to return to [place] to have the scopes performed. Patient notes he was placed on a clear liquid diet. He had a small bowel movement and was discharged to home to remain on a clear liquid diet. Patient notes he went home an took stool softeners and laxatives and had multiple melanotic stools. He notes the following day, his stools returned to normal. He has remained on a full liquid diet. He notes he has lost 10-12 pounds since this all started. He states he is having diarrhea. He notes he is passing flatus. He notes his last colonoscopy was in 2012 at [facility]. No polyps were found per patient. He noted his next scope was to be scheduled for 10 years from now. Patient notes a lack of energy. He notes a surgical history of open appendectomy at age 14-15 years. Patient has had 2 previous myocardial infarctions and a cardiac bypass surgery in 2011. 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 ROS General General: Yes weight change; No appetite, fatigue, colon cancer or breast cancer HEENT HEENT: No difficulty swallowing, eye injury, eye surgery, swollen glands or hoarseness Endo Endocrine: No thyroid disease, diabetes mellitus, thyroid cancer, Hair loss, heat intolerance or cold intolerance Skin Skin: No rash or changing moles Musc Musculoskeletal: Yes back problems and arthritis; No rheumatoid arthritis, gout or joint pain Cardio Cardiovascular: Yes heart attack; No murmur, pacemaker, heart disease, atrial fibrillation, high blood pressure, heart stent, palpitations, shortness of breat with exertion or chest pain Psych Psychiatric: No depression, anxiety or hearing voices Resp Respiratory: Yes shortness of breath, No sleep apnea, Yes cough, No COPD, No asthma, Yes emphysema and No wheezing Gastro Gastrointestinal: Yes abdominal pain, Yes nausea or vomiting, No diarrhea, No constipation, No blood in stool, Yes acid reflux, Yes hemorrhoids, No ulcers, No gallbladder problem and No black,tarry stools Placido Hematologic: No blood thinners, No blood disorders, No bleeding, No anemia and No blood clots Additional Details: Baby ASA Neuro Neurologic: Yes system reviewed and no additional complaints, except as documented Exam Const General: cooperative, comfortable, no acute distress and ill appearing Other: Pale appearance [facility] Head: normal to inspection Eyes General: appearance normal, both eyes and all related structures Neck Neck: normal visual inspection Neck mass: No Resp Effort & Inspection: normal respiratory effort Auscultation: clear to auscultation bilaterally Cardio Rate: regular rate Rhythm: regular rhythm GI Inspection: normal to inspection Palpation: soft and tender (Adjacent to the umbilicus, palpable fullness) in the RUQ Auscultation: normal bowel sounds Musc Cervical Spine: normal cervical lordosis Skin General: no rashes or lesions noted Neuro General: no focal motor deficits and CN's II-XI intact bilaterally Extrem General: normal to inspection Psych Appearance: grossly normal Affect: normal affect Assessment and Plan Assessment and Plan (1) Abdominal pain: ?Status:?Acute ?Plan: Dr. Zamudio has also evaluated this patient. Patient continues to have some discomfort. It is unclear from the CT report out of state if the patient truly had a SBO versus an ileus versus a mass. CT scan was not completed with contrast. Images are not present here in the office. Patient continues to appear ill. We are recommending a repeat CT scan of the ab/pel with contrast. Obtain CBC, BMP, and sed rate. Patient will follow-up to discuss imaging and blood work in the office. Patient and his have had the opportunity to ask and have questions answered. Our office will attempt to facilitate the CT scan. Patient and are appreciative of our care. I have re-examined the patient. There are no clinical changes since date of exam. Severiano Zamudio M.D., F.A.C.S.
--- NOTE | 2022-09-02 08:30 | IMM_PTH ---
PATIENT: MARAY GANDHI LOC: [facility] U#:[id number] AGE/SX: 72/M ROOM: RE09/02/[address]: Dr. Severiano Zamudio MD : 1950 BED: DIS: 09/02/2022 SPEC #: [id number] RECD: 09/02/22 13:49 STATUS: GORDO REQ #: [id number] SURY: 09/02/22 08:[address]: Severiano Zamudio DEPT: IMMUNOHISTOCHEMISTRY RECD BY: Aspen Liang ENTERED: 09/02/22 13:49 SP TYPE: IMMUNO OTHR DR: Dr. Dhruv Deleon MD Tissues: A - Stomach, NOS Procedures: H Pylori (initial) PHYSICIAN & INSTITUTION [place] [address] SPECIMEN INFORMATION: Tissue Source: A ? Antrum biopsy Clinical Info: Abdominal pain Specimen Number: [id number] CPT code: 14781 METHODOLOGY: Deparaffinized sections of prefer/formalin-fixed tissue or PAP/DQ stained slides are incubated with monoclonal/polyclonal antibodies/oligonucleotide probes. Localization is made via biotin free immunoperoxidase method. Appropriate controls are performed and reacted as expected. Results on target cell population are indicated in the following table: RESULTS: ANTIBODY / CLONE RESULT Block A H Pylori (polyclonal) negative These tests were developed and their performance characteristics determined by [facility]. They may not have been cleared or approved by the U.S. Food and Drug Administration. The FDA has determined that such clearance or approval is not necessary. The above immunohistochemical/dualISH markers are ordered and reviewed by the Pathologist. INTERPRETATION: A. Antrum, biopsy: Negative for Helicobacter pylori organisms. AM:camron 09/03/2022
--- NOTE | 2022-09-02 10:00 | OP.EGD_ITS ---
Patient Name: Mohsen Clark Procedure Date: 09/02/2022 9:22 AM Date of : 1950 Age: 72 Procedure: Upper GI endoscopy Indications: Generalized abdominal pain Providers: Severiano Zamudio MD Medicines: See the Anesthesia note for documentation of the administered medications Complications: No immediate complications. Procedure: Pre-Anesthesia Assessment: - Prior to the procedure, a History and Physical was performed, and patient medications and allergies were reviewed. The patient's tolerance of previous anesthesia was also reviewed. The risks and benefits of the procedure and the sedation options and risks were discussed with the patient. All questions were answered, and informed consent was obtained. Prior Anticoagulants: The patient has taken no previous anticoagulant or antiplatelet agents. ASA Grade Assessment: II - A patient with mild systemic disease. After reviewing the risks and benefits, the patient was deemed in satisfactory condition to undergo the procedure. After obtaining informed consent, the endoscope was passed under direct vision. Throughout the procedure, the patient's blood pressure, pulse, and oxygen saturations were monitored continuously. The pediatric colonoscope was introduced through the mouth, and advanced to the second part of duodenum. The upper GI endoscopy was accomplished without difficulty. The patient tolerated the procedure well. Scope In: 9:33:41 AM Scope Out: 9:40:54 AM Total Procedure Duration Time 0 hours 7 minutes 13 seconds Findings: LA Grade A (one or more mucosal breaks less than 5 mm, not extending between tops of 2 mucosal folds) esophagitis with no bleeding was found 38 cm from the incisors. Biopsies were taken with a cold forceps for histology. A small hiatal hernia was present. Diffuse mildly erythematous mucosa without bleeding was found in the gastric antrum. Biopsies were taken with a cold forceps for histology. The examined duodenum was normal. Impression: - LA Grade A reflux esophagitis. Biopsied. - Small hiatal hernia. - Erythematous mucosa in the antrum. Biopsied. - Normal examined duodenum. Recommendation: - Discharge patient to home. - Resume previous diet. - Continue present medications. - Telephone my office for pathology results in 1 week. Findings do not correlate or explain the patient's episode of generalized abdominal pain which was felt at the outside hospital to be consistent with small bowel obstruction. Will await pathology and notify the patient of results and additional recommendations. He is currently asymptomatic. Procedure Code(s): --- Professional --- 14956, Esophagogastroduodenoscopy, flexible, transoral; with biopsy, single or multiple Diagnosis Code(s): --- Professional --- K21.0, Gastro-esophageal reflux disease with esophagitis K44.9, Diaphragmatic hernia without obstruction or gangrene K31.89, Other diseases of stomach and duodenum R10.84, Generalized abdominal pain CPT copyright 2017 [place] [employer]. All rights reserved. The codes documented in this report are preliminary and upon skin care instructor review may be revised to meet current compliance requirements. Severiano Zamudio MD 09/02/2022 9:59:39 AM This report has been signed electronically. Number of Addenda: 0 Note Initiated On: 09/02/2022 9:22 AM
--- NOTE | 2022-09-02 10:00 | OP.CCLET_ITS ---
09/02/2022 Dhruv Deleon Re : Upper GI endoscopy procedure for Mohsen Packerkandace Deleon This procedure was performed on Friday, September 02, 2022. My impressions and recommendations are as follows: Impressions : - LA Grade A reflux esophagitis. Biopsied. - Small hiatal hernia. - Erythematous mucosa in the antrum. Biopsied. - Normal examined duodenum. Recommendations : - Discharge patient to home. - Resume previous diet. - Continue present medications. - Telephone my office for pathology results in 1 week. Findings do not correlate or explain the patient's episode of generalized abdominal pain which was felt at the outside hospital to be consistent with small bowel obstruction. Will await pathology and notify the patient of results and additional recommendations. He is currently asymptomatic. My findings are described in the full procedure note, which is enclosed. If I can be of further assistance, please feel free to contact me at Doctor phone number(s): Work: . Sincerely, Severiano Zamudio MD 09/02/2022 9:59:39 AM This report has been signed electronically.
--- NOTE | 2022-09-02 10:02 | OP.COLON_ITS ---
Patient Name: Mohsen Clark Procedure Date: 09/02/2022 9:41 AM Date of : 1950 Age: 72 Procedure: Colonoscopy Indications: Generalized abdominal pain Providers: Severiano Zamudio MD Medicines: See the Anesthesia note for documentation of the administered medications Patient Profile: Last Colonoscopy: date unknown. Complications: No immediate complications. Procedure: Pre-Anesthesia Assessment: - Prior to the procedure, a History and Physical was performed, and patient medications and allergies were reviewed. The patient's tolerance of previous anesthesia was also reviewed. The risks and benefits of the procedure and the sedation options and risks were discussed with the patient. All questions were answered, and informed consent was obtained. Prior Anticoagulants: The patient has taken no previous anticoagulant or antiplatelet agents. ASA Grade Assessment: II - A patient with mild systemic disease. After reviewing the risks and benefits, the patient was deemed in satisfactory condition to undergo the procedure. After I obtained informed consent, the scope was passed under direct vision. Throughout the procedure, the patient's blood pressure, pulse, and oxygen saturations were monitored continuously. The pediatric colonoscope was introduced through the anus and advanced to the cecum, identified by appendiceal orifice and ileocecal valve. The colonoscopy was performed without difficulty. The patient tolerated the procedure well. The quality of the bowel preparation was fair. The ileocecal valve and the appendiceal orifice were photographed. Scope In: 9:43:13 AM Scope Withdrawal Time 0 hours 7 minutes 51 seconds Scope Out: 9:55:11 AM Total Procedure Duration Time 0 hours 11 minutes 58 seconds Findings: The digital rectal exam findings include non-thrombosed external hemorrhoids, non-thrombosed internal hemorrhoids, internal hemorrhoids that prolapse with straining, but spontaneously regress to the resting position (Grade II) and enlarged prostate. A few diverticula were found in the sigmoid colon. The exam was otherwise without abnormality. Impression: - Preparation of the colon was fair. - Non-thrombosed external hemorrhoids, non-thrombosed internal hemorrhoids, internal hemorrhoids that prolapse with straining, but spontaneously regress to the resting position (Grade II) and enlarged prostate found on digital rectal exam. - Diverticulosis in the sigmoid colon. - The examination was otherwise normal. - No specimens collected. Recommendation: - Discharge patient to home. - Resume previous diet. - Continue present medications. - Repeat colonoscopy in 10 years for screening purposes. Procedure Code(s): --- Professional --- 40761, Colonoscopy, flexible; diagnostic, including collection of specimen(s) by brushing or washing, when performed (separate procedure) Diagnosis Code(s): --- Professional --- K64.1, Second degree hemorrhoids K64.4, Residual hemorrhoidal skin tags R10.84, Generalized abdominal pain K57.30, Diverticulosis of large intestine without perforation or abscess without bleeding N40.0, Benign prostatic hyperplasia without lower urinary tract symptoms CPT copyright 2017 [place] [employer]. All rights reserved. The codes documented in this report are preliminary and upon facility maintenance manager review may be revised to meet current compliance requirements. Severiano Zamudio MD 09/02/2022 10:02:10 AM This report has been signed electronically. Number of Addenda: 0 Note Initiated On: 09/02/2022 9:41 AM
--- NOTE | 2022-09-02 10:02 | OP.CCLET_ITS ---
09/02/2022 Dhruv Deleon Re : Colonoscopy procedure for Mohsen Clark Deakandace Deleon This procedure was performed on Friday, September 02, 2022. My impressions and recommendations are as follows: Impressions : - Preparation of the colon was fair. - Non-thrombosed external hemorrhoids, non-thrombosed internal hemorrhoids, internal hemorrhoids that prolapse with straining, but spontaneously regress to the resting position (Grade II) and enlarged prostate found on digital rectal exam. - Diverticulosis in the sigmoid colon. - The examination was otherwise normal. - No specimens collected. Recommendations : - Discharge patient to home. - Resume previous diet. - Continue present medications. - Repeat colonoscopy in 10 years for screening purposes. My findings are described in the full procedure note, which is enclosed. If I can be of further assistance, please feel free to contact me at Doctor phone number(s): Work: . Sincerely, Severiano Zamudio MD 09/02/2022 10:02:10 AM This report has been signed electronically.
== END 2022-09-02 10:47 | disposition home or self-care (01) ==
LOC: EN 07:22 → AC 07:23
PROVIDERS: PCP Family Medicine; Referring Provider Family Medicine; Visit Provider Surgery
PROC: 0DJD8ZZ Inspection of Lower Intestinal Tract, Via Natural or Artificial Opening Endoscopic (ICD-10-PCS; CPT 45378; principal; 2022-09-02 08:25)
DX: K21.00 Gastro-esophageal reflux disease with esophagitis, without bleeding (principal); K29.50 Unspecified chronic gastritis without bleeding; K44.9 Diaphragmatic hernia without obstruction or gangrene; K57.30 Diverticulosis of large intestine without perforation or abscess without bleeding; K64.8 Other hemorrhoids; K64.4 Residual hemorrhoidal skin tags; K64.1 Second degree hemorrhoids; N40.0 Benign prostatic hyperplasia without lower urinary tract symptoms; I10 Essential (primary) hypertension; E78.00 Pure hypercholesterolemia, unspecified; I25.2 Old myocardial infarction; Z87.19 Personal history of other diseases of the digestive system; Z79.899 Other long term (current) drug therapy; Z95.1 Presence of aortocoronary bypass graft; Z87.891 Personal history of nicotine dependence
CPT/HCPCS: 45378; 43239; 88305; 88313; 88342; J7120; J2405

== ENCOUNTER → 2022-11-04 | Outpatient (CLI) | payer OTHER, SELFPAY | END | disposition home or self-care (01) | LOC: LAB 09:29 | PROVIDERS: PCP Family Medicine; Visit Provider Internal Medicine Critical Care Medicine | DX: R05.3 Chronic cough (principal) | CPT/HCPCS: 87070; 87077; 87205 ==

== ENCOUNTER → 2022-11-12 | Outpatient (CLI) | payer OTHER, SELFPAY ==
[2022-11-12 12:04] LABS: Absolute Lymphocyte Count 1.96 X10^3/uL (0.83-4.51); Absolute Neutrophil Count 4.7 X10^3/uL (2.0-7.7); Basophil# 0.04 X10^3/uL; Basophil% 0.5 % (0-1); Eosinophil# 0.29 X10^3/uL; Eosinophils% 3.7 % (0-5); Hematocrit 43.5 % (40-54); Hemoglobin 14.2 g/dL (13.0-16.5); Lymphocyte # 1.96 X10^3/ul (0.83-4.51); Lymphocyte % 24.9 % (19-41); Mean Corp Hgb Conc 32.6 g/dL (32-36); Mean Corpuscular Hgb 29.7 pg (27.0-32.0); Mean Platelet Vol. 10.6 fl (6.2-12.0); Monocyte# 0.86 X10^3/uL; Monocyte% 10.9 % (0-10); NRBC Flagged by Analyzer 0 % (0-5); Neutrophil # 4.69 X10^3/uL (2.7-7.7); Neutrophil % 59.6 % (47-70); Platelet Count 199 K/mm3 (150-450); RBC Distribution Width CV 12.9 % (11.6-14.6); RBC Distribution Width SD 43.4 fl (35.1-43.9); Red Blood Count 4.78 M/mm3 (4.6-6.2); White Blood Count 7.9 K/mm3 (4.4-11.0)
[2022-11-12 12:40] LABS: AST(SGOT) 28 U/L (15-37); Alanine Aminotransfer ALT/SGPT 38 U/L (16-61); Albumin, Serum 3.6 g/dL (3.2-5.0); Alkaline Phosphatase 63 U/L (45-117); Anion Gap 4 (5-15); BUN 18 mg/dL (7-18); BUN/Creat Ratio 14.2 RATIO (10-20); Calcium,Total 8.9 mg/dL (8.5-10.1); Chloride 105 mmol/L (98-107); Creatinine, Serum 1.27 mg/dL (0.70-1.30); EST Glomerular Filtration Rate 59 mL/min (>60); Est Glom Filt Rate - Afr Amer 72 mL/min (>60); Globulin 3.6 g/dL (2.2-4.2); Glucose 96 mg/dL (74-106); Potassium 4.3 mmol/L (3.5-5.1); Protein, Total 7.2 g/dL (6.4-8.2); Sodium Level 139 mmol/L (136-145)
== END | disposition home or self-care (01) ==
LOC: MTLAB 09:58
PROVIDERS: PCP Family Medicine; Referring Provider Internal Medicine Rheumatology; Visit Provider Internal Medicine Rheumatology
DX: M06.4 Inflammatory polyarthropathy (principal); R76.8 Other specified abnormal immunological findings in serum; M47.897 Other spondylosis, lumbosacral region; Q66.70 Congenital pes cavus, unspecified foot; R06.00 Dyspnea, unspecified; I25.10 Atherosclerotic heart disease of native coronary artery without angina pectoris; K21.9 Gastro-esophageal reflux disease without esophagitis; J30.9 Allergic rhinitis, unspecified; E78.5 Hyperlipidemia, unspecified; N40.0 Benign prostatic hyperplasia without lower urinary tract symptoms; Z79.899 Other long term (current) drug therapy
CPT/HCPCS: 36415; 80053; 85025

== ENCOUNTER → 2023-04-29 | Outpatient (CLI) | payer OTHER, SELFPAY ==
[2023-04-29 11:27] LABS: Absolute Lymphocyte Count 1.47 X10^3/uL (0.83-4.51); Absolute Neutrophil Count 3.6 X10^3/uL (2.0-7.7); Basophil# 0.05 X10^3/uL; Basophil% 0.8 % (0-1); Eosinophil# 0.24 X10^3/uL; Hematocrit 46.4 % (40-54); Hemoglobin 15.3 g/dL (13.0-16.5); Lymphocyte # 1.47 X10^3/ul (0.83-4.51); Lymphocyte % 24.3 % (19-41); Mean Corpuscular Hgb 30.2 pg (27.0-32.0); Mean Corpuscular Volume 91.7 fL (80-94); Mean Platelet Vol. 11.2 fl (6.2-12.0); Monocyte# 0.67 X10^3/uL; Monocyte% 11.1 % (0-10); NRBC Flagged by Analyzer 0 % (0-5); Neutrophil % 59.3 % (47-70); Platelet Count 163 K/mm3 (150-450); RBC Distribution Width CV 13.3 % (11.6-14.6); RBC Distribution Width SD 45.5 fl (35.1-43.9); Red Blood Count 5.06 M/mm3 (4.6-6.2); White Blood Count 6.1 K/mm3 (4.4-11.0)
[2023-04-29 11:50] LABS: AST(SGOT) 35 U/L (15-37); Alanine Aminotransfer ALT/SGPT 36 U/L (16-61); Albumin, Serum 3.6 g/dL (3.2-5.0); Alkaline Phosphatase 64 U/L (45-117); Anion Gap 4 (5-15); BUN 23 mg/dL (7-18); Calcium,Total 8.9 mg/dL (8.5-10.1); Chloride 110 mmol/L (98-107); Creatinine, Serum 1.21 mg/dL (0.70-1.30); EST Glomerular Filtration Rate 63 mL/min (>60); Est Glom Filt Rate - Afr Amer 76 mL/min (>60); Globulin 3.7 g/dL (2.2-4.2); Glucose 90 mg/dL (74-106); Potassium 4.1 mmol/L (3.5-5.1); Protein, Total 7.3 g/dL (6.4-8.2); Sodium Level 140 mmol/L (136-145)
== END | disposition home or self-care (01) ==
PROVIDERS: PCP Family Medicine; Referring Provider Internal Medicine Rheumatology; Visit Provider Internal Medicine Rheumatology
DX: M06.4 Inflammatory polyarthropathy (principal); Z79.899 Other long term (current) drug therapy; R76.8 Other specified abnormal immunological findings in serum; M47.897 Other spondylosis, lumbosacral region; Q66.70 Congenital pes cavus, unspecified foot; R06.00 Dyspnea, unspecified; I25.10 Atherosclerotic heart disease of native coronary artery without angina pectoris; K21.9 Gastro-esophageal reflux disease without esophagitis; J30.9 Allergic rhinitis, unspecified; E78.5 Hyperlipidemia, unspecified; N40.0 Benign prostatic hyperplasia without lower urinary tract symptoms
CPT/HCPCS: 36415; 80053; 85025

== ENCOUNTER → 2023-11-12 | Outpatient (CLI) | payer OTHER, SELFPAY ==
[2023-11-12 13:30] VITALS: PULSE 101; PULSE 102; PULSE 103; PULSE 105; PULSE 106; PULSE 86; PULSE 89; PULSE 92; O2SAT 90; O2SAT 91; O2SAT 92; O2SAT 95; O2SAT 96
--- NOTE | 2023-11-17 08:43 | PCM.PSN.6M ---
PSN 6 Minute Walk Test 6 Minute Walk Test 6 Minute Walk Test: 6 Minute Walk Test PSN:6-Minute Walk Test Start: 11/12/23 13:45 Freq: Status: Active Protocol: RESP.6MINW Document 11/12/23 13:30 AEH (Rec: 11/12/23 13:48 [facility] Desktop) 6 Minute Walk Test Date Performed 11/12/23 Time Performed 13:30 Height 5 ft 9 in Weight: 185 lb Weight in Pounds 185.[address]: Lakeisha Assistive device used: None Pre-test Oxygen Delivery Method Room Air Pulse Ox 95 Pulse Rate (60-100) 89 Dyspnea Saud Scale (0-10) 0 Exertion Saud Scale (6-20) 6 1st minute Oxygen Delivery Method Room Air Pulse Ox 92 Pulse Rate (60-100) 86 2nd minute Oxygen Delivery Method Room Air Pulse Ox 91 Pulse Rate (60-100) 101 H 3rd minute Oxygen Delivery Method Room Air Pulse Ox 90 Pulse Rate (60-100) 105 H 4th minute Oxygen Delivery Method Room Air Pulse Ox 91 Pulse Rate (60-100) 102 H 5th minute Oxygen Delivery Method Venturi Mask Pulse Ox 91 Pulse Rate (60-100) 106 H 6th minute Oxygen Delivery Method Room Air Pulse Ox 91 Pulse Rate (60-100) 103 H Dyspnea Saud Scale (0-10) 0 Exertion Saud Scale (6-20) 11 Post-test Oxygen Delivery Method Room Air Pulse Ox 96 Pulse Rate (60-100) 92 Full Laps Walked 22 Partial Lap, Number of Tiles Walked 35 Total Distance Walked (ft) 1333 Interpretation Interpretation: The patient ambulated 1333 feet over the course of 6 minutes beginning on room air without assistive devices. Pretesting oxygen saturation was noted to be 95% on room air. With ambulation, the guerrero oxygen saturation was 90%. This represents a significant exertional oxygen desaturation. Recommendations Recommendations: There is no indication for the use of supplemental oxygen at this time. However, close interval follow-up was recommended, given the degree of oxygen desaturation noted during this study.
== END | disposition home or self-care (01) ==
LOC: PSN 13:08
PROVIDERS: PCP Family Medicine; Referring Provider Nurse Practitioner Acute Care; Visit Provider Nurse Practitioner Acute Care
DX: R06.00 Dyspnea, unspecified (principal)
CPT/HCPCS: 94618

== ENCOUNTER → 2024-05-24 | Outpatient (CLI) | payer OTHER, SELFPAY | END | disposition home or self-care (01) | LOC: PSN 09:23 | PROVIDERS: PCP Family Medicine; Referring Provider Nurse Practitioner Acute Care; Visit Provider Nurse Practitioner Acute Care | DX: R06.00 Dyspnea, unspecified (principal) | CPT/HCPCS: 94060; 94726; 94729 ==

== ENCOUNTER → 2024-05-27 | Outpatient (CLI) | payer OTHER, SELFPAY ==
[2024-05-27 13:27] VITALS: PULSE 68; PULSE 69; PULSE 79; PULSE 81; PULSE 82; PULSE 83; PULSE 86; O2SAT 88; O2SAT 91; O2SAT 92; O2SAT 94; O2SAT 96
--- NOTE | 2024-05-27 13:33 | CPS ---
Patient does not currently have any oxygen at home but does have a pulse oximeter that he will monitor his SpO2 with at home. Patient requested that he would like a POC if possible since he tries to stay as active as possible.
--- NOTE | 2024-06-01 09:38 | PCM.PSN.6M ---
PSN 6 Minute Walk Test 6 Minute Walk Test 6 Minute Walk Test: 6 Minute Walk Test PSN:6-Minute Walk Test Start: 05/27/24 13:26 Freq: Status: Active Protocol: RESP.6MINW Document 05/27/24 13:27 ZEB (Rec: 05/27/24 13:36 DEYAKEIRY [id number]) 6 Minute Walk Test Date Performed 05/27/24 Time Performed 12:30 Height 5 ft 8 in Weight: 175 lb Weight in Pounds 175.[address]: Elsa Vega STRATEGIC MARKETING ASSOCIATE Assistive device used: None Pre-test Oxygen Delivery Method Room Air Pulse Ox (%) 94 Pulse Rate (60-100 beats/min) 68 Dyspnea Saud Scale (0-10) 0 Exertion Saud Scale (6-20) 6 1st minute Oxygen Delivery Method Room Air Pulse Ox (%) 92 Pulse Rate (60-100 beats/min) 83 2nd minute Oxygen Delivery Method Room Air Pulse Ox (%) 88 Pulse Rate (60-100 beats/min) 86 3rd minute Oxygen Flow Rate (L/min) (L/min) 2 Oxygen Delivery Method Nasal Cannula Pulse Ox (%) 92 Pulse Rate (60-100 beats/min) 79 4th minute Oxygen Flow Rate (L/min) (L/min) 2 Oxygen Delivery Method Nasal Cannula Pulse Ox (%) 92 Pulse Rate (60-100 beats/min) 81 5th minute Oxygen Flow Rate (L/min) (L/min) 2 Oxygen Delivery Method Nasal Cannula Pulse Ox (%) 91 Pulse Rate (60-100 beats/min) 82 6th minute Oxygen Flow Rate (L/min) (L/min) 2 Oxygen Delivery Method Nasal Cannula Pulse Ox (%) 91 Pulse Rate (60-100 beats/min) 83 Dyspnea Saud Scale (0-10) 3 Exertion Saud Scale (6-20) 13 Post-test Oxygen Flow Rate (L/min) (L/min) 2 Oxygen Delivery Method Nasal Cannula Pulse Ox (%) 96 Pulse Rate (60-100 beats/min) 69 Full Laps Walked 18 Partial Lap, Number of Tiles Walked 10 Total Distance Walked (ft) 1072 05/27/24 13:33 Cardiopulmonary Services by Mone Schafer Patient does not currently have any oxygen at home but does have a pulse oximeter that he will monitor his SpO2 with at home. Patient requested that he would like a POC if possible since he tries to stay as active as possible. Initialized on 05/27/24 13:33 - END OF NOTE Interpretation Interpretation: The patient ambulated 1072 feet over the course of 6 minutes beginning on room air without assistive devices. Pretesting oxygen saturation was noted to be 94% on room air. With ambulation, the guerrero oxygen saturation was 88%. 2 L/min of supplemental oxygen was applied, and the patient was able to complete the remainder of the test while maintaining appropriate saturations. Recommendations Recommendations: 2 L/min of supplemental oxygen should be utilized with exertion.
== END | disposition home or self-care (01) ==
LOC: PSN 12:14
PROVIDERS: PCP Family Medicine; Referring Provider Nurse Practitioner Acute Care; Visit Provider Nurse Practitioner Acute Care
DX: R06.00 Dyspnea, unspecified (principal)
CPT/HCPCS: 94618

== ENCOUNTER → 2024-06-03 | Outpatient (CLI) | payer OTHER, SELFPAY ==
--- NOTE | 2024-06-03 14:47 | CT_ITS ---
INDICATION: Difficulty breathing EXAMINATION: CT CHEST WITHOUT CONTRAST - CT Chest W/O Contrast Injection TECHNIQUE: Helically acquired images were obtained of the chest. A radiation dose optimization technique was used for this scan. IV Contrast dosage and agent: None. COMPARISON: 06/12/2020 FINDINGS: LUNGS, PLEURA AND LARGE AIRWAYS: Lung windows show underlying emphysema with nonspecific pleural thickening in the apices, and chronic interstitial changes throughout both lung wesley. Peripheral honeycombing noted throughout both lung wesley essentially symmetrically distributed. There is no organized infiltrate or effusion but there is pleural thickening and there is a noncalcified left upper lobe nodule on axial image 40 measuring 6.4 mm new since the previous study. THYROID: No thyroid lesions. HEART AND PERICARDIUM: Heart size is normal. No pericardial effusion. CORONARY ARTERIES: Coronary artery calcification is seen. VESSELS: Thoracic aorta is not dilated. MEDIASTINUM AND DAVINA: No suspicious bulky mediastinal or hilar adenopathy. Esophagus is unremarkable. There is a small hiatal hernia with thickening of the distal esophagus suggesting reflux esophagitis. UPPER ABDOMEN: Limited cuts through the upper abdomen show significant change in the liver since the previous study, there are nodular border suggesting underlying cirrhosis, there are concerning low-density nodules in the right lobe which suggest metastasis, and there is ascites around the periphery of the liver. The spleen is also dramatically increased in size compared to the previous study. BONES: No suspicious lytic or blastic abnormality. Bony structures show degenerative change CT/Chest without Contrast IMPRESSION: Lungs show underlying emphysema with nonspecific pleural thickening, chronic interstitial changes in both lung wesley, diffuse honeycombing in the periphery of the lung wesley, and chronic bronchitis. Findings are consistent with UIP. New suspicious noncalcified 6 mm nodule in the left upper lobe on axial image 40. ACR Lung CT Screening Reporting And Data System (Lung-RADS) score: 4X - Very Suspicious. There are additional features or imaging findings that increase the suspicion of malignancy. Recommend chest CT with or without contrast, PET/CT and/or tissue sampling depending on the probability of malignancy and comorbidities. PET/CT may be used when there is a >=8 mm solid component. For new large nodules that develop on an annual repeat screening CT, a 1 month LDCT may be recommended to address potentially infectious or inflammatory conditions. No suspicious adenopathy Hiatal hernia with evidence to suspect GE reflux Concerning changes in the liver since the previous study, there is evidence to suspect cirrhosis with nodular borders. There are concerning new low-density nodules in the right lobe suspicious for metastasis along with ascites. Spleen is also increased dramatically in size since the previous study Degenerative bony changes Electronically Signed: Ernesto Cullen MD at 15:34 EDT ,
== END | disposition home or self-care (01) ==
LOC: CT 14:46
PROVIDERS: PCP Family Medicine; Referring Provider Nurse Practitioner Acute Care; Visit Provider Nurse Practitioner Acute Care
DX: J84.9 Interstitial pulmonary disease, unspecified (principal)
CPT/HCPCS: 71250

== ENCOUNTER → 2024-07-14 | Outpatient (CLI) | payer OTHER, SELFPAY ==
--- NOTE | 2024-07-14 09:50 | PCM.PR.HP ---
History of Present Illness General Arrival date:: 07/14/24 Arrival time:: 09:51 Date of Referral:: 06/14/24 Date of Evaluation: 07/14/24 Referring Physician: Dr. Young Lassiter Primary Diagnosis: Interstitial pulmonary disease History of Present Pulmonary Event [facility] Breathless Scale: When is the patient short of breath? Y/N Grade: Description of Breathlessness: 0 I only get breathless with strenuous exercise. 1 I get short of breath when hurrying on level ground or walking up a slight hill. 2 On level ground, I walk slower than people of the same age because of breathless, or have to stop for breath when walking at my own pace. 3 I stop for breath after walking 100 yards or after a few minutes on level ground. 4 I am too breathless to leave the house or I am breathless when dressing. Respiratory Problems: Yes Retain Secretions, Chest Pain, Fatigue, Dyspnea with Activity and Cough with Secretions; No Limited Range of Motion, Wheezing, Able to Speak in Full Sentences, Dizziness, Ankle Swelling, Hoarseness, Anxiety, Panic, Dyspnea at Rest or Dyspnea Lying Down Flat Medications Home Medications aspirin 81 mg chewable tablet 81 mg PO QDAY 05/24/18 atorvastatin 10 mg tablet 10 mg PO QDAY 05/24/18 tamsulosin 0.4 mg capsule (Flomax) 0.4 mg PO QHS 06/20/20 hydroxychloroquine 200 mg tablet (Plaquenil) 200 mg PO BID 08/29/22 omeprazole 20 mg capsule,delayed release 20 mg PO DAILY 08/29/22 prednisone 10 mg tablet 10 mg PO PRN PRN RA FLARE 08/29/22 acetaminophen 500 mg tablet (Tylenol Extra Strength) 1,000 mg PO Q6H PRN 10/16/22 loratadine 10 mg tablet (Claritin) 10 mg PO DAILY 10/16/22 Allergies Allergies [id number] Reductase Inhibitor Allergy (Verified 06/09/24 11:17) Rash Secretions Thick:: Yes Amount/Day:: 1 TSP Cough:: Yes Sleep Disorder Evaluation Hx of Sleep Apnea: No Do you snore loudly (louder than talking or can be heard through closed doors)?: No Do you often feel tired/ fatigued/ sleepy during daytime?: Yes Has anyone observed you stop breathing during sleep?: No History of Hypertension (for STOP score): No STOP Results: Negative Medical Utilization Medical Utilization Number of hospital visits in the last year?: 0 Number of emergency room visits in the last year?: 0 Do you see your physician on a regular schedule?: Yes How often?: 2 Advanced Directives Advanced Directives Power of [employer]: Yes Living Will: Yes Advance Directives Information Provided: Yes Advance Directives on File: No DNR Order?:: No Past Medical History Covid-19 Screening Physicial Symptoms Current respiratory symptoms: Yes Other Clinical Concerns Exposure Risk Pertinent Comorbidities 65 years or older:: Yes Has a chronic lung disease or moderate to severe asthma:: Yes Has liver disease:: Yes Medical History Medical History Liver cancer History of hiatal hernia Interstitial lung disease Arthritis Bladder disease Hepatitis High cholesterol Back pain Blackout Shortness of breath on exertion Former smoker History of heart attack Cardiology follow-up encounter Skin lesion Sebaceous cyst Epigastric abdominal pain GERD (gastroesophageal reflux disease) hypercholesterolemia HTN (hypertension) Surgical History Surgical History Hx of esophagogastroduodenoscopy History of cardiac catheterization Hx of colonoscopy Hx of appendectomy History of lumbar fusion History of carpal tunnel surgery of right wrist History of carpal tunnel surgery of left wrist H/O heart surgery H/O hand surgery h/o back surgery H/O knee surgery H/O shoulder surgery Significant Family History Family History Mother Arthritis Social History Smoking History Smoking Status: Former smoker (stopped 25 years ago) Years Smokin (.5-1.0 packs a day ) Hx Tobacco Use: Yes Alcohol Use Alcohol Usage: No Substance Abuse Hx Substance Use: No 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) Hobbies, Recreation, Social Activities Hobbies: Other (boating, camping, hunting, bike) Recreational Activities: I am able to engage in a few activities Functioning ADL/IADL Current Ability Current Ability: Independent: Self-Care (e.g.,grooming, dressing, & bathing), Independent: Ambulation, Independent: Transfer and Independent: Household tasks (e.g., light meal prep, laundry, shopping) Pt Functioning Prior to Problem Prior Functioning: Self-Care (e.g.,grooming, dressing, & bathing): Independent, Ambulation: Independent, Transfer: Independent and Household tasks (e.g., light meal prep, laundry, shopping): Independent Social Environment Status Marital Status: Current Living Arrangements Living Environment:: Spouse Children How many children do you have?: 3 Do any of your children live nearby?: Yes Safety Do you feel safe in your surroundings?: Yes Assistance Do you need any assistance at home?: no Review of Systems Review of Systems Review of Systems Respiratory: Reports Cough, Pleuritic Pain, SOB upon Exertion, Sputum production, Fatigue and Sleep, Normal; Denies SOB at Rest, Wheezing or Appetite, Normal Pain Is Patient Pain Free?: Yes Risk Factor Assessment Chief Complaint Chief Complaint: interstitial pulmonary disease Vital Signs Pulse Rate: 71 Pulse Ox: 91 (room air) Blood Pressure: 86/50 Obesity Height: 5 ft 8 in Weight:: 167 lb Weight in Pounds: 167.0 lbs Weight Source: Stated by Patient Body Mass Index (BMI): 25.4 Nutritional Referral for Obesity: No Physical Activity Physical Inactivity: Reg Exercise 30 min/day Risk Stratification Risk Guidelines: Lowest Risk: Risk Factor for Smoking and Moderate Risk: Risk Factor for Dyslipidemia, Risk Factor for Diabetes, Risk Factor for Obesity, Risk Factor for Hypertension, Risk Factor for Sedentary Lifestyle and Risk Factor for Depression For Smoking Smoking Risk Guidelines For Dyslipidemia Dyslipidemia Risk Guidelines For Diabetes Mellitus Diabetes Risk Guidelines For Obesity/Overweight Obesity/Overweight Risk Guidelines For Hypertension Hypertension Risk Guidelines For Sedentary Lifestyle Sedentary Lifestyle Risk Guidelines For Depression Depression Risk Guidelines Motivation Motivation to Participate On a scale of 1 to 10, how prepared are you to commit to attending program?: 10 What do you see as barriers to successfully being able to complete the program?: cancer treatments What do you see as the benefits of succesfully completing the program? In other words, what do you hope to get out of participating in the program?: stonger, breath better Are there issues you are dealing with that will interfere with completing the program?: cancer treatments Do you have a spouse or signficant other, family or friends who will help support you to complete the program?: yes Diagnostic Data Review 6 Minute Walk Test 6 Minute Walk Test: 2L with exertion Pulmonary Function Test FEV1:: 2.03 FVC:: 2.64 FEV1/FVC%:: 101
--- NOTE | 2024-07-14 09:58 | PCM.PR.TP ---
General Information2 General Information Admitting Diagnosis: interstitial pulmonary disease Personal Learning Style/Barriers Personal Learning Style:: Audio/Visual Barriers to Learning: None Education/Goals MT Patient Goals: Increase muscle strength: Initial Assessment, Experience less dyspnea: Initial Assessment, Improve energy level: Initial Assessment, Participate in home exercise: Initial Assessment, Improve the ability to cope with ADLs: Initial Assessment and Improve knowledge of lung disease: Initial Assessment Exercise - Initial Assessment Visit Date of Eval: 07/14/24 (initial eval ) Problem/Goals Problems: Deconditioning Goals:: Aerobic exercise 30-60 mins x 12 weeks [36 sessions] Physician Prescribed Exercise Modalities: Treadmill, Rower, Schwinn Airdyne AD-7, SciFit Stepper, [employer] Pro-II Ergometer and LGC WirelessFit Lateral Psychiatric Rn Frequency (days/week): 3 Duration (Minutes):: 30-45 Intensity: 60-80% of age predicted maximum heart rate reserve Target HR:: 110 (88-110) Plan Plan and Plan to Review:: Benefits of exercise, Core components of exercise, How to measure dyspnea level, How to monitor dyspnea level, Exercise intensity, Exercise safety guideline, Home exercise guidelines and Saud: 3-4/11-13 Home Exercise Mode: Walking Nutrition/Wt Mgmt - Initial Visit Date of Eval: 07/14/24 (initial eval ) Weight Management Admit Height:: 5 ft 8 in Admit Weight:: 172 lb Admit BMI:: 26.1 Intervention Referral to dietitian:: No Will attend diet classes:: Yes Intervention/Plan: Instruct on ideal BMI & set weight loss goal w/patient, Assist pt to ID & incorporate diet changes for weight loss by S9, Refer to Structured Weight Loss program as appropriate, Encourage goal of using 250-300dcal per session for weight loss and Other additional plan/interventions Plan Nutrition Plan: Yes: Review BMI or WC & identify target wt & strategies for wt control, Yes: Nutrition education class:, Yes: Medication education class [Prednisone]:, Yes: Weight control education class: and Yes: Education re: Need for ongoing weight monitoring and No: Food diary: and No: Physical activity log: Nutrition/Wt Mgmt - 30-Day Weight Management Height: 5 ft 8 in Weight:: 172 lb BMI: 26.1 Nutrition/Wt Mgmt - 60-Day Weight Management Height: 5 ft 8 in Weight:: 172 lb BMI: 26.1 Nutrition/Wt Mgmt - 90-Day Weight Management Height: 5 ft 8 in Weight:: 172 lb BMI: 26.1 Nutrition/Wt Mgmt - Final Weight Management Height: 5 ft 8 in Weight:: 172 lb BMI: 26.1 Psychosocial - Initial Assess Visit Date of Eval: 07/14/24 (initial eval ) Problems/Goals History of Emotional Disorders: None Psychosocial Goals: 1. Patient is free from overwhelming symtoms of depression (or anxiety, 2. Identifies personal stressors & states the strategies for managing, 3. Identifies activities to decrease isolation and/or symptoms of, 4. Improved psychosocial coping skills. and 5. Verbalizes coping strategies. Psychosocial Test Referred to MD for counseling:: No Referral to Behavioral Health PS - Interventions: Yes: Attend Stress Management Classes Intervention/Plan: See List Interventions/Plan:: Assess stressors,coping strategies & signs of derpression on admission, Instruct/assist pt to develop coping & personal stress Mgt strategies, Refer to Behavioral Health if appropriate, Refer to Physician if appropriate, Instruct patient to recognize signs & symptoms of depression and Instruct patient to recog Psychosocial - 30-Day Problems/Goals History of Emotional Disorders: None Psychosocial Goals: 1. Patient is free from overwhelming symtoms of depression (or anxiety, 2. Identifies personal stressors & states the strategies for managing, 3. Identifies activities to decrease isolation and/or symptoms of, 4. Improved psychosocial coping skills. and 5. Verbalizes coping strategies. Psychosocial Test Referred to MD for counseling:: No Referral to Behavioral Health PS - Interventions: Yes: Attend Stress Management Classes Plan Interventions/Plan:: Assess stressors,coping strategies & signs of derpression on admission, Instruct/assist pt to develop coping & personal stress Mgt strategies, Refer to Behavioral Health if appropriate, Refer to Physician if appropriate, Instruct patient to recognize signs & symptoms of depression and Instruct patient to recog Psychosocial - 60-Day Problems/Goals History of Emotional Disorders: None Psychosocial Goals: 1. Patient is free from overwhelming symtoms of depression (or anxiety, 2. Identifies personal stressors & states the strategies for managing, 3. Identifies activities to decrease isolation and/or symptoms of, 4. Improved psychosocial coping skills. and 5. Verbalizes coping strategies. Psychosocial Test Referred to MD for counseling:: No Referral to Behavioral Health PS - Interventions: Yes: Attend Stress Management Classes Plan Interventions/Plan:: Assess stressors,coping strategies & signs of derpression on admission, Instruct/assist pt to develop coping & personal stress Mgt strategies, Refer to Behavioral Health if appropriate, Refer to Physician if appropriate, Instruct patient to recognize signs & symptoms of depression and Instruct patient to recog Psychosocial - 90-Day Problems/Goals History of Emotional Disorders: None Psychosocial Goals: 1. Patient is free from overwhelming symtoms of depression (or anxiety, 2. Identifies personal stressors & states the strategies for managing, 3. Identifies activities to decrease isolation and/or symptoms of, 4. Improved psychosocial coping skills. and 5. Verbalizes coping strategies. Psychosocial Test Referred to MD for counseling:: No Referral to Behavioral Health PS - Interventions: Yes: Attend Stress Management Classes Plan Interventions/Plan:: Assess stressors,coping strategies & signs of derpression on admission, Instruct/assist pt to develop coping & personal stress Mgt strategies, Refer to Behavioral Health if appropriate, Refer to Physician if appropriate, Instruct patient to recognize signs & symptoms of depression and Instruct patient to recog Psychosocial - Final Assess Problems/Goals History of Emotional Disorders: None Psychosocial Goals: 1. Patient is free from overwhelming symtoms of depression (or anxiety, 2. Identifies personal stressors & states the strategies for managing, 3. Identifies activities to decrease isolation and/or symptoms of, 4. Improved psychosocial coping skills. and 5. Verbalizes coping strategies. Psychosocial Test Referred to MD for counseling:: No Referral to Behavioral Health PS - Interventions: Yes: Attend Stress Management Classes Plan Interventions/Plan:: Assess stressors,coping strategies & signs of derpression on admission, Instruct/assist pt to develop coping & personal stress Mgt strategies, Refer to Behavioral Health if appropriate, Refer to Physician if appropriate, Instruct patient to recognize signs & symptoms of depression and Instruct patient to recog Oxygen & Oxygen Titration Init Visit Date of Eval: 07/14/24 (initial eval ) Initial Assessment Oxygen on Admission: Oxygen w/activity Goal Oxygen & Oxygen Tritration Goals: Effective hypoxemia control and Uses O2 as Rx'd/safely Plans Plan: Monitor SpO2 rest & with exercise, Recommend appropriate FiO2 to Pt/MD, Assist to contact DME for O2, Train appropriate O2 use at rest, Train appropriate O2 use with exercise and Train O2 safety & systems Reviewed prescribed medications:: Purpose, Schedule, Side effects and Importance of compliance Instruct correct technique/timing & care:: MDI and DPI Bronchial Hygiene Plan: Controlled cough, CPT, Vibratory PEP device, VEST, Role of exercise in secretion clearance, NS Nasal spray, Hydration, Hand hygiene, Evaluate sputum, When to call MD, Signs/symptoms to report:, Influenza/Pneumovax vaccines and Cleaning of respiratory equipment Core Components - Initial Visit Date of Eval: 07/14/24 (initial eval ) Hypertension [place] [employer] Hypertension Guidelines Outcomes/Goals: Able to verbalize/achieve optimal blood pressure <130/80, Incorporates diet changes & exercise for blood pressure control by DC and Other additional outcomes/goals Tobacco - Initial Assessment Tobacco Program Goals Gave Education Materials For:: Tobacco Triggers, Pulmonary Disease, Risk Factors, Breathing Techniques, Medical Compliance, Pulmonary A&P, Exacerbation Signs & Symptoms and Stress & Relaxation Exacerbation Mgmt & Airway Clearance Plan: Monitor SpO2 rest & with exercise, Recommend appropriate FiO2 to Pt/MD, Assist to contact DME for O2, Train appropriate O2 use at rest, Train appropriate O2 use with exercise and Train O2 safety & systems Instruct correct technique/timing & care:: MDI and DPI Bronchial Hygiene Plan: Controlled cough, CPT, Vibratory PEP device, VEST, Role of exercise in secretion clearance, NS Nasal spray, Hydration, Hand hygiene, Evaluate sputum, When to call MD, Signs/symptoms to report:, Influenza/Pneumovax vaccines and Cleaning of respiratory equipment Medication Interventions/plans: Instruct on medication effects & side effects, Review medication list w/patient every two weeks, Instruct importance of taking meds as ordered & assist problem solving and Other additional Medication Goals: Adherence to prescribed medications and Correct technique/timing & care of MDI, DPI, nebulizer, and spacer. Does pt report taking home meds as prescribed?: Yes Reviewed prescribed medications:: Purpose, Schedule, Side effects and Importance of compliance Diabetes Referral to dietitian:: No Will attend diet classes:: Yes Heart Failure Documenting weight daily for CHF: No Core Components - 30 DAYS Hypertension [place] [employer] Hypertension Guidelines Outcomes/Goals: Able to verbalize/achieve optimal blood pressure <130/80, Incorporates diet changes & exercise for blood pressure control by DC and Other additional outcomes/goals Tobacco - 30-Day Tobacco Program Goals Gave Education Materials For:: Tobacco Triggers, Pulmonary Disease, Risk Factors, Breathing Techniques, Medical Compliance, Pulmonary A&P, Exacerbation Signs & Symptoms and Stress & Relaxation Heart Failure Documenting weight celestina: No Core Components - 60 DAYS Hypertension [place] [employer] Hypertension Guidelines Outcomes/Goals: Able to verbalize/achieve optimal blood pressure <130/80, Incorporates diet changes & exercise for blood pressure control by DC and Other additional outcomes/goals Tobacco - 60-Day Tobacco Program Goals Gave Education Materials For:: Tobacco Triggers, Pulmonary Disease, Risk Factors, Breathing Techniques, Medical Compliance, Pulmonary A&P, Exacerbation Signs & Symptoms and Stress & Relaxation Heart Failure Documenting weight celestina: No Core Components - 90 DAYS Hypertension [place] [employer] Hypertension Guidelines Outcomes/Goals: Able to verbalize/achieve optimal blood pressure <130/80, Incorporates diet changes & exercise for blood pressure control by DC and Other additional outcomes/goals Tobacco - 90-Day Tobacco Program Goals Gave Education Materials For:: Tobacco Triggers, Pulmonary Disease, Risk Factors, Breathing Techniques, Medical Compliance, Pulmonary A&P, Exacerbation Signs & Symptoms and Stress & Relaxation Core Components - Final Hypertension [place] [employer] Hypertension Guidelines Outcomes/Goals: Able to verbalize/achieve optimal blood pressure <130/80, Incorporates diet changes & exercise for blood pressure control by DC and Other additional outcomes/goals Patient Health Questionnaire PHQ-9 Screening Initial Assessment: 1. Little interest or pleasure in doing things: Several days 2. Feeling down, depressed, or hopeless: Not at all 3. Trouble falling or staying asleep, or sleeping too much: Not at all 4. Feeling tired or having little energy: Nearly every day 5. Poor appetite or overeating: Nearly every day 6. Feeling bad about yourself -- or that you are a failure or have let yourself or your family down: Not at all 7. Trouble concentrating on things, such as reading the newspaper or watching television: Not at all 8. Moving or speaking so slowly that other people could have noticed. Or the opposite - being so fidgety or restless that you have been moving around a lot more than usual: Not at all 9. Thoughts that you would be better off , or of hurting yourself in some way: Not at all How difficult have these problems made it for you to do your work, take care of things at home, or get along with other people?: Somewhat difficult Total Score: 7 Knowledge Questionaire (BCKQ) Information Information: [place] COPD Knowledge Questionnaire (BCKQ) This questionnaire is designed to find out what you know about your lung problem. It should be completed without help form anyone else. This usually takes between 10 and 20 minutes. Your answers will help us to find out what information you need to help you to understand and manage your lung condition. Mathieu the ramona which you think is the correct answer. COPD Assessment Test [CAT] Questions Never cough = 0, Cough all the time = 5: 4 No phlegm = 0, Chest full of phlegm = 5: 3 No chest tightness = 0, Chest very tight = 5: 1 No breathless w/exertion = 0, Very breathless w/exertion = 5: 5 No limitations w/activity = 0, Very limited w/activity = 5: 5 Confident leaving home = 0, Not at all confident = 5: 5 Sleep soundly = 0, Don't sleep soundly = 5: 0 Lots of energy = 0, No energy at all = 5: 5 Total CAT score:: 28 Self-Efficacy 6-Item Scale Initial Assessment: We would like to know how confident you are in doing certain activities. Please select your confidence level for: Fatigue Select Number: 5 Physical Discomfort or Pain Select Number: 5 Emotional Distress Select Number: 8 Other Symptoms or Health Problems Select Number: 1 Different Tasks and Activities Select Number: 6 Medication Select Number: 5 Total Score:: 5 Nutrition Survey Nutrition Survey Instructions Scoring Instructions Nutrition Survey Initial: Have you lost >10 lbs over the past 2 months without trying?: Yes Are you following a special diet at home for diabetes, low fat, or low salt?: No Are you interested in meeting with a dietitian for help understanding your diet?: No Do you eat less than 3 meals a day?: Yes Do you eat fatty meats (gillette, sausage, ribs, etc), fried foods, desserts, large amounts of salad dressings, margarine, butter, or cheese most days?: No Do you have food allergies? [Enter types in comment field]: No Do you eat in restaurants more than 3 times a week?: No Do you season food with salt, seasoning salt, or garlic salt?: Yes Do you used canned, boxed, frozen meals, or soups, seasoning packets?: No Total Score:: 3
[2024-07-14 10:17] VITALS: PULSE 71; O2SAT 91
[2024-07-14 10:26] VITALS: BP 86/50; BMI 25.4
[2024-07-14 11:11] VITALS: BMI 26.1
== END | disposition home or self-care (01) ==
PROVIDERS: PCP Family Medicine; Referring Provider Internal Medicine Critical Care Medicine; Visit Provider Internal Medicine Critical Care Medicine
DX: J84.89 Other specified interstitial pulmonary diseases (principal)

== ENCOUNTER 2024-07-20 13:00 | Outpatient (RCR) | payer OTHER, SELFPAY ==
[2024-07-14 11:11] VITALS: BMI 26.1
== END 2024-07-30 23:59 ==
LOC: PR 13:00
PROVIDERS: PCP Family Medicine; Referring Provider Internal Medicine Critical Care Medicine; Visit Provider Internal Medicine Critical Care Medicine
DX: J98.4 Other disorders of lung (principal); J84.9 Interstitial pulmonary disease, unspecified
CPT/HCPCS: 97150; G0239

== ENCOUNTER 2024-08-03 09:37 | Outpatient (RCR) | payer OTHER, SELFPAY ==
[2024-07-14 11:11] VITALS: BMI 26.1
== END 2024-08-29 23:59 ==
LOC: PR 09:37
PROVIDERS: PCP Family Medicine; Referring Provider Internal Medicine Critical Care Medicine; Visit Provider Internal Medicine Critical Care Medicine
DX: J98.4 Other disorders of lung (principal); J84.9 Interstitial pulmonary disease, unspecified
CPT/HCPCS: 97150; G0239

== ENCOUNTER → 2024-08-09 | Outpatient (CLI) | payer OTHER, SELFPAY ==
[2024-07-14 11:11] VITALS: BMI 26.1
--- NOTE | 2024-08-09 08:37 | US_ITS ---
PROCEDURE: Ultrasound guided paracentesis. DATE OF EXAMINATION: August 09, 2024. INDICATION: Male, 74 years old. Ascites. PHYSICIAN: Arnaldo Polanco M.D. TECHNIQUE: The risks, benefits, and alternatives to the procedure were explained to the patient. The specific risks of bleeding, infection, and damage to bowel were detailed and accepted. Witnessed informed consent was obtained. The abdomen was ultrasonographically surveyed. An appropriate pocket of fluid was identified at the left lower quadrant. The skin were cleaned and prepped in the usual sterile fashion. Using ultrasound guidance, the peritoneal cavity was accessed with a 5-[place]izen [place] paracentesis needle/catheter system. The trocar was removed. A total of 2850 ml of carlene-colored fluid were removed from the peritoneal cavity. The catheter was removed and a sterile dressing was applied. The procedure was well tolerated. US/Paracentesis with US IMPRESSION: Ultrasound guided paracentesis. Electronically Signed: Arnaldo Polnaco MD at 10:06 EDT ,
[2024-08-09 08:52] VITALS: BP 142/75; PULSE 71; RESP 16; O2SAT 99
[2024-08-09] MEDS: Lidocaine 2% (20 ml mdv) 20 ML Vial INFILT (09:00)
[2024-08-09 09:07] VITALS: BP 132/71; PULSE 65; RESP 16; O2SAT 99
[2024-08-09 09:18] VITALS: BP 139/77; PULSE 76; RESP 16; O2SAT 98
== END | disposition home or self-care (01) ==
LOC: US 08:36
PROVIDERS: PCP Family Medicine; Referring Provider Internal Medicine Hematology & Oncology; Visit Provider Internal Medicine Hematology & Oncology
DX: K74.60 Unspecified cirrhosis of liver (principal); R18.8 Other ascites
CPT/HCPCS: 49083

== ENCOUNTER → 2024-08-16 | Outpatient (CLI) | payer OTHER, SELFPAY ==
[2024-07-14 11:11] VITALS: BMI 26.1
[2024-08-16 08:15] VITALS: BP 140/77; PULSE 70; RESP 18; TEMP 36.2; O2SAT 96
[2024-08-16] MEDS: Lidocaine 2% (20 ml mdv) 20 ML Vial INFILT (08:20)
[2024-08-16 08:30] VITALS: BP 132/68; PULSE 65; RESP 16; O2SAT 94
[2024-08-16 08:34] VITALS: BP 130/67; PULSE 65; RESP 16; O2SAT 95
--- NOTE | 2024-08-16 09:32 | PCM.OP.PRO ---
Procedure Report Date of Procedure: 08/16/24 Assessment & Plan Assessment/Plan (1) Ascites: QUALIFIERS: Ascites type: malignant Qualified Code(s): R18.0 - Malignant ascites PLAN: PROCEDURE: Ultrasound guided paracentesis ORDERING PROVIDER: Dr. Rausch INDICATION: Male, 74 years old. Malignant ascites. PROVIDER: NETTA Alatorre TECHNIQUE: The risks, benefits, and alternatives to the procedure were explained to the patient. The specific risks of bleeding, infection, and damage to bowel were detailed and accepted. Witnessed informed consent was obtained. The abdomen was ultrasonographically surveyed. An appropriate pocket of fluid was identified in the right lower quadrant. The skin was prepped with chlorhexidine and sterile field established. 2% lidocaine was used for local anesthetic. Using ultrasound guidance, the peritoneal cavity was accessed with a 5-[place] paracentesis needle/catheter system. The trocar was removed. A total of 2550 ml of clear yellow colored fluid was removed from the peritoneal cavity. The catheter was removed and a sterile dressing was applied. The procedure was well tolerated. IMPRESSION: Successful ultrasound guided paracentesis with right lower quadrant access site. Procedures Radiology Radiology US Procedures: 14540 Paracentesis
== END | disposition home or self-care (01) ==
LOC: US 08:05
PROVIDERS: PCP Family Medicine; Referring Provider Internal Medicine Hematology & Oncology; Visit Provider Internal Medicine Hematology & Oncology
DX: K74.60 Unspecified cirrhosis of liver (principal); R18.8 Other ascites
CPT/HCPCS: 49083